=== PATIENT | female | born 1935 | race Caucasian/White ===

== ENCOUNTER 2017-02-22 10:18 | Emergency (ER) | payer MEDICARE, OTHER ==
--- NOTE | 2017-02-22 10:44 | ED Physician Documentation ---
PD HPI FEMALE - Stated complaint Stated Complaint: FEMALE - Chief complaint Chief Complaint: General - History obtained from History obtained from: Patient - History of Present Illness Timing - onset: Today Timing - duration: Days (1) Timing - details: Abrupt onset, Still present Associated symptoms: Dysuria, Urinary frequency. No: Fever, Vaginal discharge, Genital sore/lesion Similar symptoms before: Has not had sx before Recently seen: Not recently seen Review of Systems Constitutional: denies: Fever, Chills GI: denies: Abdominal Pain, Nausea, Vomiting, Diarrhea : reports: Dysuria, Frequency. denies: Discharge Skin: denies: Rash, Lesions PD PAST MEDICAL HISTORY - Past Medical History Cardiovascular: None Respiratory: None Neuro: None Endocrine/Autoimmune: None GI: Ulcers : None HEENT: Other Psych: None Musculoskeletal: Osteoarthritis Derm: None - Past Surgical History General: Colonoscopy Ortho: Hip replacement, Knee replacement HEENT: Cataracts, Tonsil/Adenoidectomy - Present Medications Home Medications: Ambulatory Orders Medication Instructions Recorded Confirmed Colon Care 1 tab PO DAILY 04/25/14 02/22/17 Multivitamin [One Daily 1 tab PO DAILY 04/25/14 02/22/17 Multivitamin] Phenazopyridine [Pyridium] 100 mg PO TID PRN #10 tablet 02/22/17 Sulfamethox/Trimeth 800/160 1 each PO BID #14 tablet 02/22/17 [Bactrim Ds 800/160] - Allergies Allergies/Adverse Reactions: Allergies Allergy/AdvReac Type Severity Reaction Status Date / Time No Known Drug Allergies Allergy Verified 02/22/17 10:27 PD ED PE NORMAL - Vitals Vital signs reviewed: Yes - General General: Alert and oriented X 3, No acute distress, Well developed/nourished - Abdomen Abdomen: Soft, Non tender - Female Female : Deferred - Back Back: No CVA TTP - Derm Derm: Normal color, Warm and dry Results - Vitals Vitals: Oxygen O2 Source Room air - Labs Labs: Microbiology 02/22/17 11:12 Urine Culture - Preliminary Urine,Random Laboratory Tests 02/22/17 11:12 Urine Color YELLOW Urine Clarity CLEAR Urine pH 7.0 Ur Specific [place] 1.010 Urine Protein NEGATIVE Urine Glucose (UA) NEGATIVE Urine Ketones NEGATIVE Urine Occult Blood SMALL H Urine Nitrite NEGATIVE Urine Bilirubin NEGATIVE Urine Urobilinogen 0.2 (NORMAL) Ur Leukocyte Esterase TRACE H Urine RBC 0-5 Urine WBC 11-25 H Ur Epithelial Cells RARE Renal Tubular Ur Squamous Epith Cells FEW Squamous Urine Bacteria Rare Ur Microscopic Review INDICATED Urine Culture Comments INDICATED PD MEDICAL DECISION MAKING - ED course Complexity details: reviewed results (symptoms c/w UTI and UA suggestive enough to go with it. ), considered differential, d/w patient Departure - Departure Disposition: 01 Home, Self Care Clinical Impression: Dysuria UTI (urinary tract infection) Qualifiers: Urinary tract infection type: acute cystitis Hematuria presence: without hematuria Qualified Code(s): N30.00 - Acute cystitis without hematuria Condition: Stable Record reviewed to determine appropriate education?: Yes Instructions: ED UTI Cystitis Female Follow-Up: Sheron Menezes PA-C [Primary Care Provider] - Prescriptions: Phenazopyridine [Pyridium] 100 mg PO TID PRN #10 tablet PRN Reason: Pain Sulfamethox/Trimeth 800/160 [Bactrim Ds 800/160] 1 each PO BID #14 tablet Comments: Your urine test does look like an infection. Your symptoms certainly go along with that. The bladder scan shows appropriate emptying of the bladder. The symptoms and frequency are having go along with the irritation from the infection. Bactrim twice daily for a week for the infection. He can use phenazopyridine 3 times a day to help reduce the irritation of the infection. Use Tylenol or ibuprofen as needed for pains or discomforts. Drink lots of fluids. Recheck if not improved over the next 2-3 days. Discharge Date/Time: 02/22/17 12:04
[2017-02-22 11:22] LABS: BILIRUBIN,URINE NEGATIVE (NEGATIVE)
[2017-02-22 11:26] LABS: UA w/ MICROSCOPIC CHARGE YES
[2017-02-22 11:33] LABS: UR CULTURE IF IND INDICATED
[2017-02-22] MEDS ORDERED: SULFAMETH/TRIMETH DS 800/160 MG TABLET PO STA (11:43)
[2017-02-22] MEDS ORDERED: PHENAZOPYRIDINE 100 MG TABLET PO STA (11:43)
[2017-02-22] MEDS ORDERED: ACETAMINOPHEN 325 MG TABLET PO STA (11:44)
[2017-02-22] MEDS ORDERED: PHENAZOPYRIDINE 100 MG TABLET PO ONE (11:59)
[2017-02-22] MEDS ORDERED: SULFAMETH/TRIMETH DS 800/160 MG TABLET PO ONE (11:59)
[2017-02-22] MEDS ORDERED: ACETAMINOPHEN 325 MG TABLET PO ONE (11:59)
[2017-02-22 12:04] VITALS: BP 122/73
== END 2017-02-22 12:04 | disposition home or self-care (01) ==
LOC: ED 10:18
DX: N30.00 Acute cystitis without hematuria (principal); Z96.659 Presence of unspecified artificial knee joint; Z96.649 Presence of unspecified artificial hip joint
CPT/HCPCS: 51798; 81001; 87077; 87086; 87181; 99283; A9270; 81003

== ENCOUNTER 2017-07-05 12:50 | Emergency (ER) | payer MEDICARE, OTHER ==
[2017-07-05 12:57] VITALS: BP 146/76
--- NOTE | 2017-07-05 13:10 | ED Physician Documentation ---
PD HPI UPPER EXT INJURY - Stated complaint Stated Complaint: R HAND INJ - Chief complaint Chief Complaint: Ext Problem - History obtained from History obtained from: Patient, Family - History of Present Illness Location: Right, Wrist, Hand Type of injury: Fall Where injury occurred: Street Timing - onset: Yesterday Timing - duration: Days (1) Timing - details: Abrupt onset Pain level max: 9 Pain level now: 9 Improved by: Rest, Ice, Immobilization Worsened by: Moving, Palpating Associated symptoms: Swelling. No: Weakness, Numbness, Tingling Contributing factors: No: Anticoagulated Recently seen: Not recently seen - Additonal information Additional information: pt is right handed. Fell and injured R wrist. Review of Systems Constitutional: denies: Fever Respiratory: denies: Cough GI: denies: Nausea, Vomiting, Diarrhea Skin: denies: Rash Musculoskeletal: denies: Neck pain, Back pain Neurologic: denies: Focal weakness, Numbness, Confused, Head injury, LOC PD PAST MEDICAL HISTORY - Past Medical History Cardiovascular: None Respiratory: None Neuro: None Endocrine/Autoimmune: None GI: Ulcers : None HEENT: Other Psych: None Musculoskeletal: Osteoarthritis Derm: None - Past Surgical History Past Surgical History: Yes General: Colonoscopy Ortho: Hip replacement, Knee replacement HEENT: Cataracts, Tonsil/Adenoidectomy - Present Medications Home Medications: Ambulatory Orders Medication Instructions Recorded Confirmed Meloxicam [Mobic] 7.5 mg PO BID PRN #20 tablet 07/05/17 - Allergies Allergies/Adverse Reactions: Allergies Allergy/AdvReac Type Severity Reaction Status Date / Time No Known Drug Allergies Allergy Verified 07/05/17 13:05 - Social History Does the pt smoke?: No Smoking Status: Never smoker Does the pt drink ETOH?: No Does the pt have substance abuse?: No - Immunizations Immunizations are current?: No PD ED PE NORMAL - Vitals Vital signs reviewed: Yes - General General: Alert and oriented X 3, No acute distress - HEENT HEENT: Moist mucous membranes - Neck Neck: Supple, no meningeal sign - Cardiac Cardiac: RRR - Respiratory Respiratory: No respiratory distress, Clear bilaterally - Back Back: No spinal TTP - Derm Derm: Warm and dry - Extremities Extremities: Other (R wrist, diffuse tenderness, swelling, ecchymosis to the R wrist. NVI. No hand or forearm tenderness. no snuffbox tendernes.) - Neuro Neuro: Alert and oriented X 3 - Psych Psych: Normal mood, Normal affect Results - Vitals Vitals: Vital Signs - 24 hr 07/05/17 12:55 Temperature 36.2 C L Heart Rate 74 Respiratory 18 Rate Blood Pressure 146/76 H O2 Saturation 96 Oxygen O2 Source Room air - Rads (name of study) R wrist xray Radiology: Prelim report reviewed, EMP read contemporaneously, See rad report ( No acute bony abnormality) PD MEDICAL DECISION MAKING - ED course Complexity details: reviewed results, re-evaluated patient, considered differential, d/w patient ED course: Patient is an 82-year-old female who presents to the emergency department after a fall onto the right wrist yesterday, no acute fractures on x-ray. No evidence of occult scaphoid fracture. Placed in a Velcro splint for comfort. Will utilize Mobic at home for pain. Counseled regarding missed fractures secondary to acute swelling and may need repeat xrays if not improving. Patient counseled regarding signs and symptoms for which I believe and urgent re -evaluation would be necessary. Patient with good understanding of and agreement to plan and is comfortable going home at this time This document was made in part using voice recognition software. While efforts are made to proofread this document, sound alike and grammatical errors may occur. Departure - Departure Disposition: 01 Home, Self Care Clinical Impression: Right wrist sprain Qualifiers: Encounter type: initial encounter Qualified Code(s): S63.501A - Unspecified sprain of right wrist, initial encounter Condition: Good Instructions: ED Sprain Wrist Follow-Up: Sheron Menezes PA-C [Primary Care Provider] - Within 1 week (for recheck) Prescriptions: Meloxicam [Mobic] 7.5 mg PO BID PRN #20 tablet PRN Reason: Pain Comments: Your x-ray does not show fracture today. Wear the splint for the next week and have a repeat evaluation with your doctor. Return if you worsen. If you are still having pain in 1 week, you may need repeat x-rays as small fractures may be missed initially secondary to swelling. Discharge Date/Time: 07/05/17 14:09
[2017-07-05] MEDS ORDERED: oxyCODONE 5 MG TABLET PO STA (13:11)
--- NOTE | 2017-07-05 13:38 | XRAY Report ---
EXAM: RIGHT WRIST RADIOGRAPHY EXAM DATE: 07/05/2017 01:32 PM. CLINICAL HISTORY: Injury. COMPARISON: None. TECHNIQUE: 3 views. FINDINGS: Bones: Normal. No fractures or bone lesions. Joints: There is mild to moderate degenerative change of the triscaphe joint. Soft Tissues: There is mild ulnar soft tissue swelling. 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 Soft tissue swelling without evidence of acute fracture. [facility] Referring Provider Line: [phone] SITE ID: [id number]
== END 2017-07-05 14:09 | disposition home or self-care (01) ==
LOC: ED 12:50
DX: S63.501A Unspecified sprain of right wrist, initial encounter (principal); W19.XXXA Unspecified fall, initial encounter; Y92.410 Unspecified street and highway as the place of occurrence of the external cause; Z96.649 Presence of unspecified artificial hip joint; Z96.659 Presence of unspecified artificial knee joint
CPT/HCPCS: 99283

== ENCOUNTER 2017-09-17 08:42 | Outpatient (CLI) | payer MEDICARE, OTHER ==
[2017-09-17 12:27] LABS: EOSINOPHILS # (AUTO) 0.1 10^3/uL (0.0-0.7); EOSINOPHILS % (AUTO) 2.1 %; HGB - HEMOGLOBIN 14.6 g/dL (12.0-16.0); LYMPHOCYTES # (AUTO) 0.8 10^3/uL (1.5-3.5); LYMPHOCYTES % (AUTO) 22.3 %; MEAN CORPUSCULAR HEMOGLOBIN 32.1 pg (27.0-31.0); MEAN CORPUSCULAR HGB CONC 33.7 g/dL (32.0-36.0); MEAN CORPUSCULAR VOLUME 95.3 fL (81.0-99.0); MEAN PLATELET VOLUME 7.5 fL (7.9-10.8); MONOCYTES # (AUTO) 0.4 10^3/uL (0.0-1.0); MONOCYTES % (AUTO) 12.2 %; NEUTROPHILS # (AUTO) 2.2 10^3/uL (1.5-6.6); NEUTROPHILS % (AUTO) 62.4 %; PLT - PLATELET COUNT 240 10^3/uL (130-450); RED BLOOD COUNT 4.54 10^6/uL (4.20-5.40); RED CELL DISTRIBUTION WIDTH 14.1 % (12.0-15.0); WHITE BLOOD COUNT 3.6 x10^3/uL (4.8-10.8)
[2017-09-17 13:10] LABS: ALBUMIN/GLOBULIN RATIO 1.3 (1.0-2.2); ALKALINE PHOSPHATASE 82 IU/L (42-121); ALT ALANINE AMINOTRANSFERASE 22 IU/L (10-60); AST ASPARTATE AMINOTRANSFERASE 29 IU/L (10-42); BILIRUBIN,TOTAL 0.5 mg/dL (0.2-1.0); BUN - BLOOD UREA NITROGEN 17 mg/dL (6-20); CALCIUM 9.2 mg/dL (8.5-10.3); CARBON DIOXIDE - CO2 28 mmol/L (21-32); CHLORIDE 104 mmol/L (101-111); CHOL/HDL RATIO 3.1 (<4.4); CHOLESTEROL 239 mg/dL; CREATININE 0.6 mg/dL (0.4-1.0); GFR - MDRD 95 (>89); GLUCOSE 102 mg/dL (70-100); HDL CHOLESTEROL 78 mg/dL; LDL CHOLESTEROL,CALCULATED 145 mg/dL; LDL/HDL RATIO 1.9 (<4.4); SODIUM 138 mmol/L (135-145); TOTAL PROTEIN 7.1 g/dL (6.7-8.2); VLDL CHOLESTEROL 16 mg/dL
[2017-09-17 13:15] LABS: THYROID STIMULATING HORMONE 1.43 uIU/mL (0.34-5.60)
== END 2017-09-17 08:43 | disposition home or self-care (01) ==
LOC: LAB.WCP 08:42
PROVIDERS: ATTEND Physician Assistant Medical
DX: R42 Dizziness and giddiness (principal); I49.1 Atrial premature depolarization; E78.5 Hyperlipidemia, unspecified; R53.83 Other fatigue; D69.9 Hemorrhagic condition, unspecified
CPT/HCPCS: 36415; 80053; 80061; 82306; 82607; 83721; 84443; 85025

== ENCOUNTER 2018-01-27 08:41 | Outpatient (CLI) | payer MEDICARE, OTHER ==
--- NOTE | 2018-01-27 13:09 | CARDIAC PROCEDURE NOTE ---
DATE OF SERVICE: 01/27/2018 Physician: Anna Gonzalez MD INDICATIONS: Dyspnea on exertion; also symptoms of dizziness, fatigue, lightheadedness with exertion. CARDIAC RISK FACTORS 1. Advanced age. 2. Hyperlipidemia. 3. Ex-smoker. After signing informed consent, the patient completed a modified Alejandro protocol treadmill stress test with nuclear imaging. RESTING EKG: Normal sinus rhythm, left atrial enlargement, left anterior fascicular block, early RS transition. The patient exercised for 5 minutes and 10 seconds on a modified Alejandro protocol. The patient achieved a peak heart rate of 119 (87% predicted maximum heart rate for age), 3.5 METS. She had very mid SOB. O2 saturation was 96% at peak, on R.A. Resting heart rate 68, peak heart rate 119. Resting blood pressure 132/80, peak blood pressure 140/60. PEAK EKG: Flattening of T waves in leads I and V2-V3, and horizontal ST segment depressions of 1 mm in leads V5 and V6. IMPRESSION 1. Abnormal resting EKG, consider right heart disease. 2. Fair exercise tolerance. 3. Abnormal EKG changes suggesting ischemia at an adequate level of stress. 4. Her symptoms of dizziness with exertion could also be consistent with cardiomyopathy or valve disease, such as aortic stenosis. She reported having an abnormal Echo, but results are unknown. Nuclear images reported separately. cc: Yohana Orlando PA-C TD: 01/27/2018 12:47 MTDD
--- NOTE | 2018-01-27 16:53 | Nuclear Medicine Report ---
Reason: DYSPNEA ON EXERTION Procedure Date: 01/27/2018 Accession Number: [id number] / [id number] Procedure: NM - Myocardial Perfusion STR/RST CPT Code: FULL RESULT: EXAM: SINGLE-ISOTOPE EXERCISE STRESS TEST. SINGLE-ISOTOPE AND ONE-DAY REST/STRESS MYOCARDIAL PERFUSION SCANS WITH TOMOGRAPHIC IMAGING, QUANTITATIVE ANALYSIS, WALL MOTION ANALYSIS AND CALCULATION OF EJECTION FRACTION. EXAM DATE: 01/27/2018 02:57 PM. CLINICAL HISTORY: Dyspnea on exertion. COMPARISON: None. TECHNIQUE: A rest myocardial perfusion scan was done with tomography after the intravenous administration of 10.3 mCi Tc-99m sestamibi. After an appropriate delay, a treadmill exercise stress was performed according to department protocol. The patient exercised for 5 minutes and 0 seconds. The maximum heart rate was 118 bpm, which was 86% of the maximum predicted heart rate of 137 bpm. At approximately peak heart rate, 43 mCi of Tc-99m sestamibi was injected for stress myocardial perfusion scan. Motion correction was applied when appropriate. Gated tomographic images were obtained for wall motion analysis and computation of left ventricular ejection fraction. FINDINGS: Stress perfusion images demonstrate no fixed or reversible perfusion defects. Mild cardiac chamber enlargement visible on both rest and stress images. Wall motion analysis demonstrates normal wall motion. The left ventricular ejection fraction is calculated to be 78%. IMPRESSION: 1. No scintigraphic findings to indicate myocardial ischemia. Negative for infarct. 2. Normal left ventricular ejection fraction of 78%. 3. Normal segmental and global wall motion. 4. Normal left ventricular cavity size, no change with stress. [facility]
== END 2018-01-27 08:42 | disposition home or self-care (01) ==
LOC: DI 08:41
PROVIDERS: ATTEND Physician Assistant Medical
DX: R06.00 Dyspnea, unspecified (principal); R94.31 Abnormal electrocardiogram [ECG] [EKG]
CPT/HCPCS: 78452; 93017; A9500

== ENCOUNTER 2019-08-11 09:57 | Outpatient (CLI) | payer MEDICARE, OTHER ==
--- NOTE | 2019-08-11 16:24 | XRAY Report ---
Reason: LEFT HAND PAIN Procedure Date: 08/11/2019 Accession Number: [id number] / [id number] Procedure: WCP - Hand 3 View LT CPT Code: Final Report FULL RESULT: EXAM: LEFT HAND RADIOGRAPHY EXAM DATE: 08/11/2019 09:57 AM. CLINICAL HISTORY: LEFT HAND PAIN. Follow onto the left hand 07/23/2019. Continued pain along the fifth digit. COMPARISON: WRIST 4 VIEW RT 07/05/2017 1:11 PM. TECHNIQUE: 3 views. FINDINGS: Bones: Bones appear diffusely demineralized. There is an acute impaction fracture of the dorsal aspect of the base of the proximal phalanx of the left fifth finger. No other acute fracture is identified. There is a markedly attenuated proximal pole of the scaphoid. Joints: Minimal chondrocalcinosis at the lunotriquetral articulation. Moderate dorsal tilt of the lunate relative to the scaphoid and capitate. Moderate joint space narrowing and sclerosis at the lunate capitate articulation. Mild joint space narrowing and osteophyte formation at the third through fifth DIP joints. Soft Tissues: Normal. No soft tissue swelling. IMPRESSION: 1. Mildly impacted fracture of the dorsal base of the proximal phalanx of the left fifth finger. 2. Bones appear diffusely demineralized. 3. 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 4. Mild osteoarthritis at the left third through fifth DIP joints. [facility]
== END 2019-08-11 23:59 | disposition home or self-care (01) ==
LOC: DI.WCP 09:57
PROVIDERS: ATTEND Physician Assistant Medical
DX: S62.617A Displaced fracture of proximal phalanx of left little finger, initial encounter for closed fracture (principal)

== ENCOUNTER 2019-09-13 07:00 | Outpatient (CLI) | payer MEDICARE, OTHER ==
[2019-09-13 12:09] LABS: BASOPHILS % (AUTO) 0.8 %; EOSINOPHILS # (AUTO) 0.1 10^3/uL (0.0-0.7); EOSINOPHILS % (AUTO) 1.1 %; HGB - HEMOGLOBIN 14.2 g/dL (12.0-16.0); LYMPHOCYTES # (AUTO) 0.8 10^3/uL (1.5-3.5); LYMPHOCYTES % (AUTO) 16.1 %; MEAN CORPUSCULAR HEMOGLOBIN 32.3 pg (27.0-31.0); MEAN CORPUSCULAR HGB CONC 32.7 g/dL (32.0-36.0); MEAN CORPUSCULAR VOLUME 98.6 fL (81.0-99.0); MEAN PLATELET VOLUME 8.9 fL (7.9-10.8); MONOCYTES # (AUTO) 0.5 10^3/uL (0.0-1.0); MONOCYTES % (AUTO) 9.5 %; NEUTROPHILS # (AUTO) 3.4 10^3/uL (1.5-6.6); NEUTROPHILS % (AUTO) 72.3 %; PLT - PLATELET COUNT 233 10^3/uL (130-450); RED CELL DISTRIBUTION WIDTH 12.9 % (12.0-15.0); WHITE BLOOD COUNT 4.7 x10^3/uL (4.8-10.8)
[2019-09-13 12:33] LABS: ALBUMIN 4.2 g/dL (3.2-5.5); ALBUMIN/GLOBULIN RATIO 1.3 (1.0-2.2); ALKALINE PHOSPHATASE 89 IU/L (42-121); ALT ALANINE AMINOTRANSFERASE 22 IU/L (10-60); AST ASPARTATE AMINOTRANSFERASE 27 IU/L (10-42); BILIRUBIN,TOTAL 0.8 mg/dL (0.2-1.0); BUN - BLOOD UREA NITROGEN 19 mg/dL (6-20); CALCIUM 9.3 mg/dL (8.5-10.3); CARBON DIOXIDE - CO2 27 mmol/L (21-32); CHLORIDE 105 mmol/L (101-111); CHOL/HDL RATIO 2.7 (<4.4); CHOLESTEROL 216 mg/dL; CREATININE 0.6 mg/dL (0.4-1.0); GLUCOSE 99 mg/dL (70-100); HDL CHOLESTEROL 79 mg/dL; LDL CHOLESTEROL,CALCULATED 124 mg/dL; LDL/HDL RATIO 1.6 (<4.4); SODIUM 141 mmol/L (135-145); TOTAL PROTEIN 7.4 g/dL (6.7-8.2); VLDL CHOLESTEROL 13 mg/dL
== END 2019-09-13 23:59 | disposition home or self-care (01) ==
LOC: LAB.WCP 07:00
PROVIDERS: ATTEND Physician Assistant Medical
DX: E78.5 Hyperlipidemia, unspecified (principal); D69.9 Hemorrhagic condition, unspecified; R53.1 Weakness; M15.8 Other polyosteoarthritis
CPT/HCPCS: 36415; 80053; 80061; 83721; 84443; 85025

== ENCOUNTER 2020-06-14 10:03 | Emergency (ER) | payer MEDICARE, OTHER ==
--- NOTE | 2020-06-14 11:46 | ED Physician Documentation ---
History of Present Illness - Stated complaint Stated Complaint: BACK PX - Chief complaint Chief Complaint: Trauma Hd/Nk - History obtained from History obtained from: Patient - History of Present Illness Timing: How many days ago (2) Pain level max: 8 Pain level now: 6 - Additonal information Additional information: Patient is an 85-year-old female who presents to the emergency department after a fall down the stairs days ago. She states that they were carpeted stairs. She states she still has pain to the left shoulder, left hip and bilateral buttocks. No midline pain. No cervical, thoracic or lumbar pain. No headache. No head injury. No loss of consciousness. No seizures. No altered mental status. Not on anticoagulants. Worse with movement and better with rest Review of Systems Ten Systems: 10 systems reviewed and negative Constitutional: denies: Fever, Chills Nose: denies: Rhinorrhea / runny nose, Congestion Respiratory: denies: Cough GI: denies: Vomiting, Diarrhea Skin: denies: Rash Musculoskeletal: denies: Neck pain, Back pain Neurologic: denies: Headache PD PAST MEDICAL HISTORY - Past Medical History Cardiovascular: None Respiratory: None Endocrine/Autoimmune: None GI: Ulcers : None HEENT: Other Psych: None Musculoskeletal: Osteoarthritis Derm: None - Past Surgical History Past Surgical History: Yes General: Colonoscopy Ortho: Hip replacement, Knee replacement HEENT: Cataracts, Tonsil/Adenoidectomy - Present Medications Home Medications: Ambulatory Orders Medication Instructions Recorded Confirmed Oxycodone HCl/Acetaminophen 1 each PO Q6H PRN #10 tablet 06/14/20 [Percocet 5-325 mg Tablet] - Allergies Allergies/Adverse Reactions: Allergies Allergy/AdvReac Type Severity Reaction Status Date / Time No Known Drug Allergies Allergy Verified 06/14/20 10:19 - Social History Does the pt smoke?: No Smoking Status: Never smoker Does the pt drink ETOH?: No Does the pt have substance abuse?: No - Immunizations Immunizations are current?: No PD ED PE NORMAL - Vitals Vital signs reviewed: Yes - General General: Alert and oriented X 3, No acute distress, Well developed/nourished - HEENT HEENT: Atraumatic, PERRL, EOMI, Ears normal, Moist mucous membranes - Neck Neck: Supple, no meningeal sign, No bony TTP - Cardiac Cardiac: RRR, Strong equal pulses - Respiratory Respiratory: No respiratory distress, Clear bilaterally - Abdomen Abdomen: Soft, Non tender, Non distended - Back Back: No spinal TTP (no step off or deformity.) - Derm Derm: Warm and dry - Extremities Extremities: Other - Neuro Neuro: Alert and oriented X 3 - Psych Psych: Normal mood, Normal affect - Free text exam Free text exam: Mild tenderness to palpation over the left shoulder and left humerus. No deformity. No bruising. No swelling. Also tender palpation over the left hip and femur. She does have a prosthetic hip on that side. Neurovascularly intact. No deformity. She has been walking for the past 2 days. Also has some pain on the right hip, though much less than the left. Results - Vitals Vitals: Vital Signs - 24 hr 06/14/20 06/14/20 06/14/20 10:14 12:29 13:28 Temperature 36.0 C L 36.8 C Heart Rate 79 80 83 Respiratory 20 20 18 Rate Blood Pressure 145/82 H 147/81 H 136/72 H O2 Saturation 97 95 96 Oxygen O2 Source Room air - Rads (name of study) L humerus xray Radiology: Prelim report reviewed, EMP read contemporaneously, See rad report (No acute abnormality) L shoulder xray Radiology: Prelim report reviewed, EMP read contemporaneously, See rad report (No acute abnormality) L femur xray Radiology: Prelim report reviewed, EMP read contemporaneously, See rad report (No acute abnormality) pelvis xray Radiology: Prelim report reviewed, EMP read contemporaneously, See rad report (No acute abnormality) PD MEDICAL DECISION MAKING - ED course Complexity details: reviewed results, re-evaluated patient, considered differential, d/w patient ED course: No acute findings on x-ray. Patient is well-appearing, nontoxic. Afebrile. No hypoxia. No evidence of intracranial hemorrhage or skull fracture. No evidence of spinal fracture. Ambulating without difficulty. Pain well controlled. Patient counseled regarding signs and symptoms for which I believe and urgent re-evaluation would be necessary. Patient with good understanding of and agreement to plan and is comfortable going home at this time This document was made in part using voice recognition software. While efforts are made to proofread this document, sound alike and grammatical errors may occur. Departure - Departure Disposition: 01 Home, Self Care Clinical Impression: Contusion of soft tissue Fall Qualifiers: Encounter type: initial encounter Qualified Code(s): W19.XXXA - Unspecified fall, initial encounter Condition: Good Instructions: ED Contusion Soft Tissue, ED Mechanical Fall Follow-Up: Yohana Orlando PA-C [Primary Care Provider] - Within 1 week Prescriptions: Oxycodone HCl/Acetaminophen [Percocet 5-325 mg Tablet] 1 each PO Q6H PRN #10 tablet PRN Reason: pain Comments: Return if you worsen. Your x-rays did not show any acute abnormalities today. Follow-up with your doctor for further care. Do not drink alcohol or drive while on narcotic pain medicine. Note that many narcotic pain relievers also contain tylenol/acetaminophen. Please ensure that your total dose of acetaminophen from all sources does not exceed 3 grams (3000mg) per day. You may constipated on this medication, take a stool softener such as "Colace" twice a day while you are on it. Also recommend a [id number] laxative such as senna or MiraLAX any day that you do not have a bowel movement. If you received narcotic pain medication in the emergency department, do not drive or operate machinery for the next 24 hours. Discharge Date/Time: 06/14/20 13:45
[2020-06-14] MEDS ORDERED: oxyCODONE 5 MG TABLET PO STA (11:56)
--- NOTE | 2020-06-14 13:02 | XRAY Report ---
PROCEDURE: Femur 2V LT INDICATIONS: fall, femur pain TECHNIQUE: 4 views of the femur were acquired. COMPARISON: None. FINDINGS: No fracture. Hip arthroplasty in expected alignment. Hardware appears intact. Arthroplasty also noted and expected postoperative alignment. Soft tissues: No suspicious soft tissu e calcifications or masses. IMPRESSION: No fracture. Reviewed by: Jose Mejia MD on 06/14/2020 1:00 PM PST Approved by: Jose Mejia MD on 06/14/2020 1:00 PM PST Station ID: [id number]
--- NOTE | 2020-06-14 13:03 | XRAY Report ---
PROCEDURE: Humerus LT INDICATIONS: fall, arm pain TECHNIQUE: 2 views of the humerus were acquired. COMPARISON: Shoulder radiographs dated same day. FINDINGS: No fracture identified. [id number]-ed-[id number] AC joint degeneration. Glenohumeral spurring and sclerosis i s also seen. There is anatomic alignment. Soft tissues: No suspicious soft tissue calcifications. IMPRESSION: No fracture. Reviewed by: Jose Mejia MD on 06/14/2020 1:02 PM [facility] Approved by: Jose Mejia MD on 06/14/2020 1:02 PM PST Station ID: [id number]
--- NOTE | 2020-06-14 13:04 | XRAY Report ---
PROCEDURE: Shoulder 3 View LT INDICATIONS: fall, shoulder pain TECHNIQUE: 3 views of the shoulder were acquired. COMPARISON: None. FINDINGS: No fracture. Mild to moderate shoulder joint degeneration. Scattered subchondral sclerosis and spurri ng. There is anatomic alignment Soft tissues: No suspicious soft tissue calcifications. IMPRESSION: Chronic degenerative changes. No fracture Reviewed by: Jose Mejia MD on 06/14/2020 1:03 PM PST Approved by: Jose Mejia MD on 06/14/2020 1:03 PM [facility] Station ID: [id number]
[2020-06-14 13:29] VITALS: BP 136/72
--- NOTE | 2020-06-18 05:53 | XRAY Report ---
PROCEDURE: Pelvis 1 View INDICATIONS: FALL, HIP PAIN TECHNIQUE: 1 view(s) of the pelvis acquired. COMPARISON: None. FINDINGS: No fracture. Bilateral hip arthroplasty in expected alignment. Lumbar spondylosis and facet arthropat hy. Degenerative changes of sacroiliac joints and pubis symphysis. Soft tissues: Visualized bowel ga s pattern is normal. No suspicious soft tissue calcifications. IMPRESSION: No fracture. Expected postoperative alignment of bilateral hip arthroplasties Reviewed by: Jose Mejia MD on 06/14/2020 1:08 PM PST Approved by: Jose Mejia MD on 06/14/2020 1:08 PM PST Station ID: [id number]
== END 2020-06-14 13:45 | disposition home or self-care (01) ==
LOC: ED 10:03
DX: M25.512 Pain in left shoulder (principal); M25.552 Pain in left hip; W10.9XXA Fall (on) (from) unspecified stairs and steps, initial encounter
CPT/HCPCS: 72170; 73030; 73060; 73552; 99284; A9270

== ENCOUNTER 2020-12-24 09:25 | Outpatient (CLI) | payer MEDICARE, OTHER ==
[2020-12-24 11:57] LABS: BASOPHILS % (AUTO) 0.9 %; EOSINOPHILS # (AUTO) 0.1 10^3/uL (0.0-0.7); EOSINOPHILS % (AUTO) 1.5 %; HCT - HEMATOCRIT 41.4 % (37.0-47.0); HGB - HEMOGLOBIN 13.8 g/dL (12.0-16.0); LYMPHOCYTES % (AUTO) 20.4 %; MEAN CORPUSCULAR HEMOGLOBIN 32.2 pg (27.0-31.0); MEAN CORPUSCULAR HGB CONC 33.3 g/dL (32.0-36.0); MEAN CORPUSCULAR VOLUME 96.7 fL (81.0-99.0); MEAN PLATELET VOLUME 9.1 fL (7.9-10.8); MONOCYTES # (AUTO) 0.6 10^3/uL (0.0-1.0); MONOCYTES % (AUTO) 12.9 %; NEUTROPHILS % (AUTO) 64.1 %; PLT - PLATELET COUNT 257 10^3/uL (130-450); RED BLOOD COUNT 4.28 10^6/uL (4.20-5.40); RED CELL DISTRIBUTION WIDTH 13.7 % (12.0-15.0); WHITE BLOOD COUNT 4.7 x10^3/uL (4.8-10.8)
[2020-12-24 12:16] LABS: ALBUMIN 4.2 g/dL (3.2-5.5); ALBUMIN/GLOBULIN RATIO 1.6 (1.0-2.2); ALKALINE PHOSPHATASE 108 IU/L (42-121); ALT ALANINE AMINOTRANSFERASE 22 IU/L (10-60); AST ASPARTATE AMINOTRANSFERASE 27 IU/L (10-42); BILIRUBIN,TOTAL 0.7 mg/dL (0.2-1.0); BUN - BLOOD UREA NITROGEN 24 mg/dL (6-20); CALCIUM 9.5 mg/dL (8.5-10.3); CARBON DIOXIDE - CO2 28 mmol/L (21-32); CHLORIDE 104 mmol/L (101-111); CHOLESTEROL 240 mg/dL; CREATININE 0.6 mg/dL (0.4-1.0); GFR - MDRD 95 (>89); GLUCOSE 104 mg/dL (70-100); HDL CHOLESTEROL 80 mg/dL; LDL CHOLESTEROL,CALCULATED 147 mg/dL; LDL/HDL RATIO 1.8 (<4.4); POTASSIUM 4.4 mmol/L (3.5-5.0); SODIUM 142 mmol/L (135-145); TOTAL PROTEIN 6.8 g/dL (6.7-8.2); TRIGLYCERIDES 65 mg/dL; VLDL CHOLESTEROL 13 mg/dL
== END 2020-12-24 23:59 | disposition home or self-care (01) ==
LOC: LAB.WCP 09:25
PROVIDERS: ATTEND Physician Assistant Medical
DX: R53.83 Other fatigue (principal); E78.5 Hyperlipidemia, unspecified; R63.4 Abnormal weight loss
CPT/HCPCS: 36415; 80053; 80061; 83721; 85025

== ENCOUNTER 2021-01-22 08:00 | Outpatient (CLI) | payer MEDICARE, OTHER ==
--- NOTE | 2021-01-22 14:35 | XRAY Report ---
PROCEDURE: Ribs w/PA Chest LT INDICATIONS: Left anterior thoracic chest wall pain TECHNIQUE: 3 views of the left ribs were acquired, along with a single view chest. COMPARISON: None. FINDINGS: Surgical changes and devices: None. Bones and chest wall: No fractures or dislocations. No suspicious bony lesions. Overlying soft tis sues appear unremarkable. Lungs and pleura: No pleural effusions or pneumothorax. Lungs appear clear. Mediastinum: Mediastinal contours appear normal. Heart size is normal. IMPRESSION: No fracture or suspicious bone lesion identified at the patient's area of pain. Reviewed by: Luciano Casas MD on 01/22/2021 2:34 PM PDT Approved by: Luciano Casas MD on 01/22/2021 2:34 PM PDT Station ID: [id number]
== END 2021-01-22 23:59 | disposition home or self-care (01) ==
LOC: DI.N 08:00
PROVIDERS: ATTEND Physician Assistant Medical
DX: S20.212A Contusion of left front wall of thorax, initial encounter (principal)

== ENCOUNTER 2021-05-22 07:12 | Outpatient (CLI) | payer MEDICARE, OTHER ==
[2021-05-22 12:05] LABS: BASOPHILS # (AUTO) 0.1 10^3/uL (0.0-0.1); BASOPHILS % (AUTO) 1.1 %; EOSINOPHILS # (AUTO) 0.1 10^3/uL (0.0-0.7); EOSINOPHILS % (AUTO) 1.8 %; HCT - HEMATOCRIT 41.9 % (37.0-47.0); HGB - HEMOGLOBIN 13.8 g/dL (12.0-16.0); LYMPHOCYTES # (AUTO) 1.1 10^3/uL (1.5-3.5); LYMPHOCYTES % (AUTO) 23.3 %; MEAN CORPUSCULAR HEMOGLOBIN 32.2 pg (27.0-31.0); MEAN CORPUSCULAR HGB CONC 32.9 g/dL (32.0-36.0); MEAN CORPUSCULAR VOLUME 97.7 fL (81.0-99.0); MEAN PLATELET VOLUME 9.5 fL (7.9-10.8); MONOCYTES # (AUTO) 0.7 10^3/uL (0.0-1.0); MONOCYTES % (AUTO) 15.1 %; NEUTROPHILS # (AUTO) 2.6 10^3/uL (1.5-6.6); NEUTROPHILS % (AUTO) 58.5 %; PLT - PLATELET COUNT 252 10^3/uL (130-450); RED BLOOD COUNT 4.29 10^6/uL (4.20-5.40); RED CELL DISTRIBUTION WIDTH 12.6 % (12.0-15.0); WHITE BLOOD COUNT 4.5 x10^3/uL (4.8-10.8)
[2021-05-22 12:52] LABS: ALBUMIN 4.2 g/dL (3.2-5.5); ALBUMIN/GLOBULIN RATIO 1.4 (1.0-2.2); ALKALINE PHOSPHATASE 96 IU/L (42-121); ALT ALANINE AMINOTRANSFERASE 21 IU/L (10-60); AST ASPARTATE AMINOTRANSFERASE 26 IU/L (10-42); BILIRUBIN,TOTAL 0.7 mg/dL (0.2-1.0); BUN - BLOOD UREA NITROGEN 25 mg/dL (6-20); CALCIUM 9.4 mg/dL (8.5-10.3); CARBON DIOXIDE - CO2 29 mmol/L (21-32); CHLORIDE 103 mmol/L (101-111); CHOL/HDL RATIO 2.6 (<4.4); CHOLESTEROL 204 mg/dL; CREATININE 0.6 mg/dL (0.4-1.0); GFR - MDRD 95 (>89); GLUCOSE 112 mg/dL (70-100); HDL CHOLESTEROL 80 mg/dL; LDL CHOLESTEROL,CALCULATED 112 mg/dL; LDL/HDL RATIO 1.4 (<4.4); SODIUM 139 mmol/L (135-145); TOTAL PROTEIN 7.2 g/dL (6.7-8.2); TRIGLYCERIDES 58 mg/dL; VLDL CHOLESTEROL 12 mg/dL
== END 2021-05-22 07:13 | disposition home or self-care (01) ==
LOC: LAB.N 07:12
PROVIDERS: ATTEND Nurse Practitioner Family
DX: E78.5 Hyperlipidemia, unspecified (principal); R53.83 Other fatigue
CPT/HCPCS: 36415; 80053; 80061; 83721; 85025

== ENCOUNTER 2021-07-04 12:56 | Outpatient (CLI) | payer MEDICARE, OTHER ==
--- NOTE | 2021-07-04 13:35 | XRAY Report ---
PROCEDURE: Ankle 3 View RT INDICATIONS: ANKLE PAIN, RIGHT TECHNIQUE: 3 views of the ankle were acquired. COMPARISON: None. FINDINGS: Bones: No fractures or dislocations. There is a small corticated ossicle superior to navicula. Ankl e mortise is normally aligned. No suspicious bony lesions. Soft tissues: Small tibiotalar joint effusion. Mild soft tissue swelling over the lateral malleolus. Achilles tendon appears normal. IMPRESSION: 1. No acute osseous abnormalities. 2. Mild soft tissue swelling and small tibiotalar joint effusion. If clinical symptoms persist or cli nical suspicion for internal derangement is high. MRI would be helpful. Reviewed by: Shravan Johansen MD on 07/04/2021 1:34 PM PDT Approved by: Shravan Johansen MD on 07/04/2021 1:34 PM PDT Station ID: [id number]
== END 2021-07-04 12:57 | disposition home or self-care (01) ==
LOC: DI.N 12:56
PROVIDERS: ATTEND Physician Assistant Medical
DX: M25.571 Pain in right ankle and joints of right foot (principal); M25.471 Effusion, right ankle

== ENCOUNTER 2021-11-13 07:32 | Outpatient (CLI) | payer MEDICARE, OTHER ==
[2021-11-13 13:09] LABS: ALBUMIN 4.2 g/dL (3.2-5.5); ALBUMIN/GLOBULIN RATIO 1.4 (1.0-2.2); ALKALINE PHOSPHATASE 74 IU/L (42-121); ALT ALANINE AMINOTRANSFERASE 20 IU/L (10-60); AST ASPARTATE AMINOTRANSFERASE 26 IU/L (10-42); BILIRUBIN,TOTAL 0.7 mg/dL (0.2-1.0); BUN - BLOOD UREA NITROGEN 27 mg/dL (6-20); CALCIUM 9.4 mg/dL (8.5-10.3); CARBON DIOXIDE - CO2 30 mmol/L (21-32); CHLORIDE 102 mmol/L (101-111); CHOL/HDL RATIO 2.9 (<4.4); CHOLESTEROL 207 mg/dL; CREATININE 0.7 mg/dL (0.4-1.0); GFR - MDRD 79 (>89); GLUCOSE 103 mg/dL (70-100); HDL CHOLESTEROL 72 mg/dL; LDL CHOLESTEROL,CALCULATED 121 mg/dL; LDL/HDL RATIO 1.7 (<4.4); POTASSIUM 4.2 mmol/L (3.5-5.0); SODIUM 138 mmol/L (135-145); TOTAL PROTEIN 7.1 g/dL (6.7-8.2); TRIGLYCERIDES 70 mg/dL; VLDL CHOLESTEROL 14 mg/dL
== END 2021-11-13 07:33 | disposition home or self-care (01) ==
LOC: LAB.N 07:32
PROVIDERS: ATTEND Physician Assistant Medical
DX: E78.5 Hyperlipidemia, unspecified (principal)
CPT/HCPCS: 36415; 80053; 80061; 83721

== ENCOUNTER 2022-01-09 08:00 | Outpatient (CLI) | payer MEDICARE, OTHER ==
--- NOTE | 2022-01-09 11:48 | XRAY Report ---
PROCEDURE: Ribs w/PA Chest LT INDICATIONS: LEFT RIB PAIN TECHNIQUE: 3 views of the left ribs were acquired, along with a single view chest. COMPARISON: None FINDINGS: Surgical changes and devices: None. Bones and chest wall: There is a minimally displaced lateral left eighth rib fracture.. No suspiciou s bony lesions. Overlying soft tissues appear unremarkable. Lungs and pleura: No pleural effusions or pneumothorax. Lungs appear clear. Mediastinum: Mediastinal contours appear normal. Heart size is normal. IMPRESSION: Minimally displaced lateral left eighth rib fracture. Reviewed by: Yisel Cope MD on 01/09/2022 11:46 AM PDT Approved by: Yisel Cope MD on 01/09/2022 11:46 AM PDT Station ID: [id number]
== END 2022-01-09 23:59 | disposition home or self-care (01) ==
LOC: DI.N 08:00
PROVIDERS: ATTEND Registered Nurse
DX: S22.32XA Fracture of one rib, left side, initial encounter for closed fracture (principal)

== ENCOUNTER 2022-06-16 08:11 | Outpatient (CLI) | payer MEDICARE, OTHER ==
[2022-06-16 13:01] LABS: CALCIUM 9.4 mg/dL (8.5-10.3); CREATININE 0.6 mg/dL (0.4-1.0); POTASSIUM 4.2 mmol/L (3.5-5.0)
== END 2022-06-16 08:12 | disposition home or self-care (01) ==
LOC: LAB.N 08:11
PROVIDERS: ATTEND Physician Assistant Medical
DX: R73.9 Hyperglycemia, unspecified (principal)
CPT/HCPCS: 36415; 80048

== ENCOUNTER 2022-11-24 07:13 | Outpatient (CLI) | payer MEDICARE, OTHER ==
[2022-11-24 12:33] LABS: BASOPHILS # (AUTO) 0.1 10^3/uL (0.0-0.1); BASOPHILS % (AUTO) 1.3 %; EOSINOPHILS # (AUTO) 0.1 10^3/uL (0.0-0.7); EOSINOPHILS % (AUTO) 1.8 %; HCT - HEMATOCRIT 41.2 % (37.0-47.0); HGB - HEMOGLOBIN 13.3 g/dL (12.0-16.0); LYMPHOCYTES # (AUTO) 0.7 10^3/uL (1.5-3.5); MEAN CORPUSCULAR HEMOGLOBIN 31.8 pg (27.0-31.0); MEAN CORPUSCULAR HGB CONC 32.3 g/dL (32.0-36.0); MEAN CORPUSCULAR VOLUME 98.6 fL (81.0-99.0); MONOCYTES # (AUTO) 0.5 10^3/uL (0.0-1.0); MONOCYTES % (AUTO) 12.1 %; NEUTROPHILS # (AUTO) 2.5 10^3/uL (1.5-6.6); NEUTROPHILS % (AUTO) 65.8 %; PLT - PLATELET COUNT 237 10^3/uL (130-450); RED BLOOD COUNT 4.18 10^6/uL (4.20-5.40); RED CELL DISTRIBUTION WIDTH 12.8 % (12.0-15.0); WHITE BLOOD COUNT 3.8 x10^3/uL (4.8-10.8)
[2022-11-24 12:55] LABS: ALBUMIN 4.2 g/dL (3.2-5.5); ALBUMIN/GLOBULIN RATIO 1.6 (1.0-2.2); ALKALINE PHOSPHATASE 107 IU/L (42-121); ALT ALANINE AMINOTRANSFERASE 15 IU/L (10-60); AST ASPARTATE AMINOTRANSFERASE 23 IU/L (10-42); BILIRUBIN,TOTAL 0.6 mg/dL (0.2-1.0); BUN - BLOOD UREA NITROGEN 15 mg/dL (6-20); CALCIUM 9.5 mg/dL (8.5-10.3); CARBON DIOXIDE - CO2 30 mmol/L (21-32); CHLORIDE 105 mmol/L (101-111); CHOL/HDL RATIO 2.8 (<4.4); CHOLESTEROL 190 mg/dL; CREATININE 0.6 mg/dL (0.6-1.3); GFR - MDRD 94 (>89); GLUCOSE 101 mg/dL (74-104); HDL CHOLESTEROL 69 mg/dL; LDL CHOLESTEROL,CALCULATED 105 mg/dL; LDL/HDL RATIO 1.5 (<4.4); POTASSIUM 4.4 mmol/L (3.5-4.5); SODIUM 141 mmol/L (135-145); TOTAL PROTEIN 6.8 g/dL (6.4-8.9); TRIGLYCERIDES 78 mg/dL (48-352); VLDL CHOLESTEROL 16 mg/dL
== END 2022-11-24 07:14 | disposition home or self-care (01) ==
LOC: LAB.N 07:13
PROVIDERS: ATTEND Physician Assistant Medical
DX: E78.5 Hyperlipidemia, unspecified (principal); R73.9 Hyperglycemia, unspecified; M15.9 Polyosteoarthritis, unspecified
CPT/HCPCS: 36415; 80053; 80061; 83721; 85025

== ENCOUNTER 2022-11-26 13:49 | Outpatient (CLI) | payer MEDICARE, OTHER ==
--- NOTE | 2022-11-26 18:16 | XRAY Report ---
PROCEDURE: Hand 3 View LT INDICATIONS: HAND PAIN LEFT TECHNIQUE: 3 views of the hand(s) acquired. COMPARISON: Left hand radiographs 08/11/2019 FINDINGS: Bones: The bones appear demineralized. No definite acute fracture or dislocation identified. Pronoun jennifer polyarticular degenerative changes of the hand and wrist present. Periarticular lucencies also de monstrated indeterminate for subchondral cystic change or erosions. Soft tissues: TFCC chondrocalcinosis present. IMPRESSION: No acute bony abnormality identified. If pain persists with conservative management, consider repeat radiographs in 10-14 days or cross-sectional imaging. Polyarticular degenerative changes of the hand and wrist. Periarticular lucencies also demonstrated i ndeterminate for subchondral cystic change or erosions, inflammatory arthropathies are not excludable . TFCC chondrocalcinosis, a nonspecific finding that can be seen in setting of CPPD, osteoarthritis, or other etiologies. Reviewed by: Esa Schulte MD on 11/26/2022 6:14 PM PDT Approved by: Esa Schulte MD on 11/26/2022 6:14 PM PDT Station ID: [id number]
== END 2022-11-26 13:50 | disposition home or self-care (01) ==
LOC: DI 13:49
PROVIDERS: ATTEND Physician Assistant Medical
DX: M19.042 Primary osteoarthritis, left hand (principal); M19.032 Primary osteoarthritis, left wrist; M11.232 Other chondrocalcinosis, left wrist

== ENCOUNTER 2023-05-28 08:47 | Outpatient (CLI) | payer MEDICARE, OTHER ==
[2023-05-28 12:27] LABS: ALBUMIN 4.2 g/dL (3.2-5.5); ALBUMIN/GLOBULIN RATIO 1.8 (1.0-2.2); ALKALINE PHOSPHATASE 77 IU/L (42-121); ALT ALANINE AMINOTRANSFERASE 14 IU/L (10-60); AST ASPARTATE AMINOTRANSFERASE 22 IU/L (10-42); BILIRUBIN,TOTAL 0.6 mg/dL (0.2-1.0); BUN - BLOOD UREA NITROGEN 19 mg/dL (6-20); CALCIUM 9.3 mg/dL (8.5-10.3); CARBON DIOXIDE - CO2 31 mmol/L (21-32); CHLORIDE 106 mmol/L (101-111); CHOL/HDL RATIO 2.6 (<4.4); CHOLESTEROL 199 mg/dL; CREATININE 0.7 mg/dL (0.6-1.3); GFR - MDRD 79 (>89); GLUCOSE 101 mg/dL (74-104); HDL CHOLESTEROL 78 mg/dL; LDL CHOLESTEROL,CALCULATED 110 mg/dL; LDL/HDL RATIO 1.4 (<4.4); POTASSIUM 4.1 mmol/L (3.5-4.5); SODIUM 141 mmol/L (135-145); TOTAL PROTEIN 6.6 g/dL (6.4-8.9); TRIGLYCERIDES 55 mg/dL (48-352); VLDL CHOLESTEROL 11 mg/dL
[2023-05-28 12:45] LABS: ESTIMATED AVERAGE GLUCOSE 120 mg/dL (70-100); HEMOGLOBIN A1c% 5.8 % (4.27-6.07)
== END 2023-05-28 08:48 | disposition home or self-care (01) ==
LOC: LAB.N 08:47
PROVIDERS: ATTEND Physician Assistant Medical
DX: E78.5 Hyperlipidemia, unspecified (principal); R73.9 Hyperglycemia, unspecified
CPT/HCPCS: 36415; 80053; 80061; 83036; 83721

== ENCOUNTER 2023-11-16 07:23 | Outpatient (CLI) | payer MEDICARE, OTHER ==
[2023-11-16 12:53] LABS: BASOPHILS % (AUTO) 0.8 %; EOSINOPHILS # (AUTO) 0.1 10^3/uL (0.0-0.7); EOSINOPHILS % (AUTO) 1.8 %; HCT - HEMATOCRIT 40.6 % (37.0-47.0); HGB - HEMOGLOBIN 13.1 g/dL (12.0-16.0); LYMPHOCYTES # (AUTO) 0.7 10^3/uL (1.5-3.5); LYMPHOCYTES % (AUTO) 13.7 %; MEAN CORPUSCULAR HGB CONC 32.3 g/dL (32.0-36.0); MEAN CORPUSCULAR VOLUME 99.3 fL (81.0-99.0); MEAN PLATELET VOLUME 9.2 fL (7.9-10.8); MONOCYTES # (AUTO) 0.7 10^3/uL (0.0-1.0); MONOCYTES % (AUTO) 13.5 %; NEUTROPHILS # (AUTO) 3.6 10^3/uL (1.5-6.6); NEUTROPHILS % (AUTO) 69.8 %; PLT - PLATELET COUNT 254 10^3/uL (130-450); RED BLOOD COUNT 4.09 10^6/uL (4.20-5.40); RED CELL DISTRIBUTION WIDTH 12.9 % (12.0-15.0); WHITE BLOOD COUNT 5.1 x10^3/uL (4.8-10.8)
[2023-11-16 13:46] LABS: ALBUMIN 4.1 g/dL (3.2-5.5); ALBUMIN/GLOBULIN RATIO 1.6 (1.0-2.2); ALKALINE PHOSPHATASE 111 IU/L (42-121); ALT ALANINE AMINOTRANSFERASE 13 IU/L (10-60); AST ASPARTATE AMINOTRANSFERASE 21 IU/L (10-42); BILIRUBIN,TOTAL 0.7 mg/dL (0.2-1.0); BUN - BLOOD UREA NITROGEN 21 mg/dL (6-20); CALCIUM 9.6 mg/dL (8.5-10.3); CARBON DIOXIDE - CO2 30 mmol/L (21-32); CHLORIDE 104 mmol/L (101-111); CHOL/HDL RATIO 2.5 (<4.4); CHOLESTEROL 191 mg/dL; CREATININE 0.7 mg/dL (0.6-1.3); GFR - MDRD 79 (>89); GLUCOSE 103 mg/dL (74-104); HDL CHOLESTEROL 75 mg/dL; LDL CHOLESTEROL,CALCULATED 102 mg/dL; LDL/HDL RATIO 1.4 (<4.4); POTASSIUM 4.1 mmol/L (3.5-4.5); SODIUM 139 mmol/L (135-145); TOTAL PROTEIN 6.6 g/dL (6.4-8.9); TRIGLYCERIDES 68 mg/dL; VLDL CHOLESTEROL 14 mg/dL
== END 2023-11-16 07:24 | disposition home or self-care (01) ==
LOC: LAB.N 07:23
PROVIDERS: ATTEND Physician Assistant Medical
DX: E78.5 Hyperlipidemia, unspecified (principal); M19.049 Primary osteoarthritis, unspecified hand
CPT/HCPCS: 36415; 80053; 80061; 83721; 85025

== ENCOUNTER 2023-11-19 11:17 | Outpatient (CLI) | payer MEDICARE, OTHER ==
--- NOTE | 2023-11-20 10:52 | Mammography Report ---
BILATERAL DIGITAL SCREENING MAMMOGRAM: 11/19/2023 CLINICAL: Routine screening. Comparison is made to exams dated: 07/17/2021 mammogram, 07/24/2011 mammogram, and 07/12/2010 mammogram - [facility]. There are scattered areas of fibroglandular density in both breasts (category b / 25%-50% glandular t issue). There are benign vascular calcifications in both breasts. No significant masses, calcifications, or other findings are seen in either breast. There has been no significant interval change. IMPRESSION: BENIGN There is no mammographic evidence of malignancy. A 1 year screening mammogram is recommended. This exam was interpreted at Station ID: [id number]. NOTE: For mammograms, a report in lay terms will be sent to the patient. Approximately 15% of breast malignancies will not be visualized mammographically. In the management of a palpable breast mass, a negative mammogram must not discourage biopsy of a clinically suspicious lesion. Electronically Signed By: Aneesh johnson/adrián:11/19/2023 18:33:49 letter sent: No_Letter ACR BI-RADS Category 2: Benign Finding(s) 3342F PARENCHYMAL PATTERN: (A) - The breast(s) demonstrate(s) scattered fibroglandular densities. BI-RADS CATEGORY: (2) - 2 RECOMMENDATION: (ANNUAL) - Recommend routine annual screening mammography. [id number] 1 year screening LATERALITY: (B)
== END 2023-11-19 11:18 | disposition home or self-care (01) ==
LOC: DI.N 11:17
DX: Z12.31 Encounter for screening mammogram for malignant neoplasm of breast (principal); R92.323 Mammographic fibroglandular density, bilateral breasts

== ENCOUNTER 2024-02-06 13:07 | Inpatient (IN) ==
--- NOTE | 2024-02-06 14:01 | ED Physician Documentation ---
History of Present Illness Stated complaint Stated Complaint: SOA,COUGH BLOOD Chief complaint Chief Complaint: Resp Additonal information Additional information: 88-year-old female presents with 5d of shortness of breath, cough with blood. History clarified from triage notes. Patient here with family. After a 2-week trip to [place] at the end of December, she had persistent cough and intermittent shortness of breath, that never improved and were ultimately treated with amoxicillin and azithromycin courses that she is about to complete. A few months ago, she did also have a doxycycline course that worked well for a similar presentation, but she has not had doxycycline recently. She has chest wall pain specifically with coughing, nonexertional, with intermittent shortness of breath. Today while in clinic, she coughed up a few small bloody clots; she denies any other prior hemoptysis. No hematemesis or red or black in stool. No fevers, chills, nausea or vomiting or diarrhea, leg swelling or leg pain, personal or family history of blood clots, anticoagulation, lightheadedness or syncope, focal numbness or weakness, or other new concerns. Per chart view, she was seen in clinic earlier today and diagnosed with pneumonia with hemoptysis. Review of Systems ROS Constitutional: no fever, no chills Eyes: no visual disturbance, no discharge Ears, Nose, Mouth, Throat: no rhinorrhea, no sore throat Cardiovascular: no chest pain, no palpitations Respiratory: + cough, shortness of breath Gastrointestinal: no abdominal pain, no vomiting, no diarrhea Genitourinary: no dysuria, no hematuria Musculoskeletal: no back pain, no neck stiffness Skin: no rash, no wound Neurological: no focal weakness, no focal numbness Meds/Allgy Home Medications Ambulatory Orders Medication Instructions Recorded Confirmed acetaminophen 500 mg tablet 500 mg PO Q6H PRN 02/01/24 02/01/24 (Tylenol Extra Strength) azithromycin 250 mg tablet See Rx Instructions PO .COMPLEX #6 02/01/24 02/01/24 tabs mecobalamin (vitamin B12) 1,000 1,000 mcg PO QDAY 02/01/24 02/01/24 mcg chewable tablet pzouabfj-rii-mdelx acid 0.4 1 tab PO QDAY 02/01/24 02/01/24 mg-lycopene 300 mcg-lutein 250 mcg tablet (Complete Multivitamin Adult 50 Plus) Allergies Allergies Allergy/AdvReac Type Severity Reaction Status Date / Time tree and shrub pollen Allergy Mild Respiratory Verified 02/06/24 13:45 [facility] Medical History Medical History (Updated 02/06/24 @ 18:25 by Rupal Ann MD) Pre-diabetes Surgical History Surgical History (Updated 02/06/24 @ 13:45 by Zarina Johnson, RN, BSN) S/P hip replacement Social History Social History (Updated 02/06/24 @ 13:45 by Zarina Johnson, RN, BSN) Smoking Status: Former smoker Do you dip or chew tobacco?: No Do you vape?: No Patient requests smoking cessation consult: No Initiate information on smoking cessation: No Relationship: Do you feel safe in your home environment?: Yes Suffered physical, verbal, emotional, or financial abuse?: No POLST Patient has POLST: No Exam Exam Const: no acute distress, non toxic appearing; calm, conversant, pleasant, ambulatory without difficulty; frequent cough Eyes: PERRLA, EOMI ENT: mucous membranes moist Neck: supple, non-tender Resp: no respiratory distress, clear to auscultation bilaterally Card: regular rate and rhythm, no murmurs Abd: non tender diffusely, no rigidity or rebound or guarding Back: no T or L spine tenderness, no CVA tenderness bilaterally Extrem: no deformities, no swelling bilateral lower extremities, 2+ distal pulses all extremities Neuro: ANOx4, senior hardware engineer grossly intact, grossly intact sensation and strength all extremities Skin: no rash, warm and dry Results Vitals Vitals: Vital Signs - 24 hr 02/06/24 13:41 02/06/24 15:15 02/06/24 15:30 Temperature 37.5 C Temperature Source Temporal Artery Scan Pulse Rate 96 H 91 H 61 Respiratory Rate 18 18 17 Blood Pressure 137/70 H 147/64 H 110/59 L O2 Saturation 96 96 98 O2 Source Room air Room air Room air If not protocol: Oxygen Flow, liters/minute Pain Intensity 0 0 02/06/24 16:00 02/06/24 16:30 02/06/24 16:49 Temperature Temperature Source Pulse Rate 87 114 H Respiratory Rate 17 18 Blood Pressure 155/74 H 169/98 H O2 Saturation 96 94 O2 Source Room air Oxymask If not protocol: Oxygen Flow, liters/minute Pain Intensity 0 5 0 02/06/24 17:00 02/06/24 17:14 02/06/24 17:30 Temperature Temperature Source Pulse Rate 113 H 101 H Respiratory Rate 17 18 Blood Pressure 159/93 H 139/80 H O2 Saturation 96 97 O2 Source Non-rebreather mask Non-rebreather mask If not protocol: Oxygen Flow, liters/minute 15 15 Pain Intensity 5 0 0 02/06/24 18:00 02/06/24 18:18 02/06/24 18:34 Temperature Temperature Source Pulse Rate 100 H 105 H 92 H Respiratory Rate 16 20 16 Blood Pressure 136/83 H 144/72 H 127/75 O2 Saturation 97 98 98 O2 Source Non-rebreather mask Non-rebreather mask Non-rebreather mask If not protocol: Oxygen Flow, liters/minute 15 15 15 Pain Intensity 0 0 0 02/06/24 18:39 02/06/24 18:47 Temperature Temperature Source Pulse Rate 101 H 91 H Respiratory Rate 18 18 Blood Pressure 88/63 L 107/51 L O2 Saturation 98 95 O2 Source Room air Non-rebreather mask If not protocol: Oxygen Flow, liters/minute 15 Pain Intensity 0 0 Oxygen O2 Source Non-rebreather mask Labs Labs: Laboratory Tests 02/06/24 02/06/24 02/06/24 14:53 14:54 17:09 WBC 11.3 H RBC 3.63 L Hgb 10.8 L Hct 33.9 L MCV 93.4 MCH 29.8 MCHC 31.9 L RDW 13.2 Plt Count 373 MPV 8.4 Neut # (Auto) 9.6 H Lymph # (Auto) 0.6 L [place] # (Auto) 1.1 H Eos # (Auto) 0.0 Baso # (Auto) 0.0 Absolute Nucleated RBC 0.00 Nucleated RBC % 0.0 PT 12.9 H INR 1.2 APTT 28.1 Sodium 136 Potassium 4.3 Chloride 101 Carbon Dioxide 28 Anion Gap 7.0 BUN 15 Creatinine 0.5 L Estimated GFR (MDRD) 116 Glucose 110 H Calcium 9.2 Total Bilirubin 0.5 AST 19 ALT 14 Alkaline Phosphatase 170 H Troponin I High Sens 5.0 Total Protein 6.8 Albumin 3.5 Globulin 3.3 Albumin/Globulin Ratio 1.1 Nasal Influenza B PCR NOT DETECTED Nasal Influenza A PCR NOT DETECTED Nasal RSV (PCR) NOT DETECTED Nasal SARS-CoV-2 (PCR) NOT DETECTED Blood Type O POSITIVE Antibody Screen NEGATIVE PD Medical Decision Making ED course ED course: This patients presentation is most suggestive of persistent bronchitis or pneumonia in a currently stable patient who is ambulatory, oxygenating well on room air. However, given length of symptoms, with pulmonary embolism also possible, D-dimer has reduced sensitivity at this point, and we will obtain a CTA PE study to assess for alternative causes such as pulmonary embolism. No large-volume hemoptysis currently. No hematemesis. I am also obtaining EKG, labs, viral swab and will closely reassess. EKG: NSR without acute ischemia or immediately concerning interval prolongation. Underlying quality was poor, and I requested repeat EKG, which on repeat continues to show normal sinus rhythm without acute ischemia or immediately concerning interval prolongation. Morphology overall does appear similar. CXR: I agree with rads read on my review of imaging below "FINDINGS: Surgical changes and devices: None. Lungs and pleura: Worsening left upper lobe opacity. Mediastinum: Mediastinal contours appear normal. Heart size is normal. Bones and chest wall: No suspicious bony lesions. Overlying soft tissues appear unremarkable. IMPRESSION: Worsening left upper lobe consolidation, concerning for pneumonia. Mass is also a consideration. Recommend follow-up x-ray in 1-2 months to ensure resolution. Reviewed by: Duran Patel MD on 02/06/2024 2:[address] PDT[address] will further characterize the above. Labs: CBC with mild leukocytosis, anemia to 10.8, no thrombocytopenia. CMP with ALP elevation which in context could suggest bone invasion of a mass, pending CT. Viral panel negative. Blood cultures x2 added. I received a call from radiology with critical CT finding; patient appears to have ruptured her aorta and likely bled into her lung, leading to hemoptysis. I immediately reassessed patient, who had remained stable to this point. She very clearly confirms with me she is not only DNR/DNI, but would NOT want surgery for this. Son at bedside corroborating. They are fully aware this could rapidly cause her to pass away. I have ordered esmolol gtt, dilaudid, and will add TXA. I have still asked for STAT Cardiothoracic consult. Soon after our conversation, patient started having massive hemoptysis. We have no nebulized TXA here. CT: I agree with radiology reads of imaging on my independent review of imaging. "FINDINGS: Image quality: Excellent. Large vessels: The wall of the descending aorta is discontinuous, with contrast extravasation extending into the left upper lobe (series 4, image 28). Lungs and pleura: Fluid is extending into the parenchyma of the left upper lung zone, and there is filling of the airways. Small left pleural effusion. Mediastinum: Heart size is enlarged. No pericardial effusion. No large vessel abnormality. No mediastinal adenopathy by size criteria. Chest wall and lower neck: Thyroid is unremarkable. No axillary or supraclavicular adenopathy by size. Bones: No aggressive osseous abnormality. Upper Abdomen: Unremarkable. IMPRESSION: Ruptured descending aorta, with a contained leak. Above discussed with KAVITHA HESS at 4:33 PM on 02/06/2024. Reviewed by: Duran Patel MD on 02/06/2024 4:36 PM PDT Approved by: Duran Patel MD on 02/06/2024 4:36 PM PDT Station ID: [id number] Report Electronically Signed by Duran Patel MD 02/06/24 1631 02/06/24 1636" I spoke with transfer center at 1650; they will call back with surgery. INR WNL. PTT WNL. Consult: I spoke with Dr. Aguilar of Vascular surgery, reviewing case. Hemoptysis suggests there could be infection; any operation would be palliative. Stent is possible to stop bleeding. However, she will likely pass away from this regardless, this would only delay outcome. Surgery would also require intubation. If she changes her mind and wants transfer, she would need to be flown emergently to [facility]. Patient is stating clearly to me she does NOT want transfer or surgery, and that she wants to at home. I spoke with family including daughter on phone as well, reviewing options of above surgery, and patient is currently choosing very clearly to pursue palliative care here. I had nursing contact Hospice to discuss; no answer yet. I spoke with Dr. Ann at [phone], reviewing case in case patient pursues palliative care inpatient here. Hospice would not be sufficiently read for patient at home. Again, patient fully understands she is at imminent risk of morbidity/mortality by not pursuing more aggressive treatmetnt/transfer; we are giving the maximal treatment she would want. She states she wants to be with her , who recently. She demonstrates capacity. CRITICAL CARE TIME: outside of procedures, I spent 125 minutes assessing, reassessing, resuscitating this patient, speaking with family and consultants, and interpreting studies and documentation, in the setting of massive hemoptysis. Discharge Plan Discharge Patient Disposition: 66 [facility] DC/Xfer Condition: Critical Clinical Impression: Massive hemoptysis, Aortic rupture Prescriptions: No Action acetaminophen [Tylenol Extra Strength] 500 mg tablet 500 mg PO Q6H PRN mecobalamin (vitamin B12) 1,000 mcg tablet,chewable 1,000 mcg PO QDAY Complete MV Adult 50 Plus 0.4 mg-300 mcg- 250 mcg tablet 1 tab PO QDAY azithromycin 250 mg tablet See Rx Instructions PO .COMPLEX Qty: 6 0RF Rx Instructions: For 250 mg dose pack: take 500 mg today (day 1), then 250 mg for 4 days (days 2-5) PO Print Language: Telugu
--- NOTE | 2024-02-06 14:39 | XRAY Report ---
PROCEDURE: XR Chest 2V INDICATIONS: hemoptysis TECHNIQUE: 2 views of the chest were acquired. COMPARISON: 02/01/2024 FINDINGS: Surgical changes and devices: None. Lungs and pleura: Worsening left upper lobe opacity. Mediastinum: Mediastinal contours appear normal. Heart size is normal. Bones and chest wall: No suspicious bony lesions. Overlying soft tissues appear unremarkable. IMPRESSION: Worsening left upper lobe consolidation, concerning for pneumonia. Mass is also a consideration. Anatoly mmend follow-up x-ray in 1-2 months to ensure resolution. Reviewed by: Duran Patel MD on 02/06/2024 2:37 PM PDT Approved by: Duran Patel MD on 02/06/2024 2:37 PM PDT Station ID: [id number]
[2024-02-06 15:03] LABS: BASOPHILS % (AUTO) 0.3 %; EOSINOPHILS % (AUTO) 0.4 %; HCT - HEMATOCRIT 33.9 % (37.0-47.0); HGB - HEMOGLOBIN 10.8 g/dL (12.0-16.0); LYMPHOCYTES # (AUTO) 0.6 10^3/uL (1.5-3.5); LYMPHOCYTES % (AUTO) 5.2 %; MEAN CORPUSCULAR HEMOGLOBIN 29.8 pg (27.0-31.0); MEAN CORPUSCULAR HGB CONC 31.9 g/dL (32.0-36.0); MEAN CORPUSCULAR VOLUME 93.4 fL (81.0-99.0); MEAN PLATELET VOLUME 8.4 fL (7.9-10.8); MONOCYTES # (AUTO) 1.1 10^3/uL (0.0-1.0); MONOCYTES % (AUTO) 9.3 %; NEUTROPHILS # (AUTO) 9.6 10^3/uL (1.5-6.6); NEUTROPHILS % (AUTO) 84.2 %; PLT - PLATELET COUNT 373 10^3/uL (130-450); RED BLOOD COUNT 3.63 10^6/uL (4.20-5.40); RED CELL DISTRIBUTION WIDTH 13.2 % (12.0-15.0); WHITE BLOOD COUNT 11.3 x10^3/uL (4.8-10.8)
[2024-02-06 15:22] LABS: ALBUMIN 3.5 g/dL (3.2-5.5); ALBUMIN/GLOBULIN RATIO 1.1 (1.0-2.2); BILIRUBIN,TOTAL 0.5 mg/dL (0.2-1.0); CALCIUM 9.2 mg/dL (8.5-10.3); CREATININE 0.5 mg/dL (0.6-1.3); POTASSIUM 4.3 mmol/L (3.5-4.5); TOTAL PROTEIN 6.8 g/dL (6.4-8.9)
[2024-02-06] MEDS ORDERED: iohexoL-300 100 ML VIAL ONE (15:34)
[2024-02-06 15:58] LABS: INFLUENZA A- RESP PCR PANEL NOT DETECTED; INFLUENZA B - RESP PCR PANEL NOT DETECTED; RSV- RESP PCR PANEL NOT DETECTED; SARS-CoV-2 -RESP PCR PANEL NOT DETECTED
--- NOTE | 2024-02-06 16:37 | CT Report ---
PROCEDURE: CT Angio Chest INDICATIONS: assess for PE; hemoptysis, SOB CONTRAST: omni 300, 80 TECHNIQUE: After the administration of intravenous contrast, 2 mm axial images were acquired from the pulmonary apices to the posterior costophrenic angles during the arterial phase. In addition, 1 mm lung kernel and 5 mm soft tissue kernel reconstructions were performed. 3-dimensional coronal oblique maximum int ensity projection (MIP) reformats, 8 mm axial MIP, and 5 mm coronal and sagittal MPR reformats were t hen performed through the thorax. For radiation dose reduction, the following was used: automated exp osure control, adjustment of mA and/or kV according to patient size. COMPARISON: X-ray 02/06/2024, 02/01/2024 FINDINGS: Image quality: Excellent. Large vessels: The wall of the descending aorta is discontinuous, with contrast extravasation extendi ng into the left upper lobe (series 4, image 28). Lungs and pleura: Fluid is extending into the parenchyma of the left upper lung zone, and there is fi lling of the airways. Small left pleural effusion. Mediastinum: Heart size is enlarged. No pericardial effusion. No large vessel abnormality. No mediast inal adenopathy by size criteria. Chest wall and lower neck: Thyroid is unremarkable. No axillary or supraclavicular adenopathy by size . Bones: No aggressive osseous abnormality. Upper Abdomen: Unremarkable. IMPRESSION: Ruptured descending aorta, with a contained leak. Above discussed with KAVITHA HESS at 4:33 PM on 02/06/2024. Reviewed by: Duran Patel MD on 02/06/2024 4:36 PM PDT Approved by: Duran Patel MD on 02/06/2024 4:36 PM PDT Station ID: [id number]
[2024-02-06] MEDS ORDERED: HYDROmorphone 1 MG/ML CARPUJECT IVP PRN (16:46)
[2024-02-06 16:47] LABS: PARTIAL THROMBOPLASTIN TIME 28.1 secs (24.9-33.3)
[2024-02-06] MEDS: HYDROmorphone 0.5 MG/0.5 ML SYRINGE IVP STA (16:49)
[2024-02-06] MEDS: ESMOLOL 2.5 GM/250 ML BAG IV STA (16:51)
[2024-02-06 16:52] LABS: INR 1.2 (0.8-1.2); PT - PROTHROMBIN TIME 12.9 secs (9.9-12.6)
[2024-02-06] MEDS: TRANEXAMIC ACID IN NACL 1,000 MG/100 ML BAG IV STA (17:00)
[2024-02-06] MEDS: iohexoL-300 100 ML VIAL IVP ONE (17:16)
[2024-02-06] MEDS ORDERED: NICARDIPINE HCL 25 MG/10 ML VIAL IV ONE (17:58)
[2024-02-06] MEDS: NICARDIPINE HCL 25 MG in SODIUM CHLORIDE 0.9% 240 ML IV STA (18:05)
--- NOTE | 2024-02-06 18:16 | HISTORY & PHYSICAL EXAMINATION ---
Chief Complaint Chief Complaint Chief Complaint: Hemoptysis History of Present Illness Admitted From Admitted From:: Home History of Present Illness HPI Comment/Other: Patient is a 88-year-old female with a history of prediabetes who presents due to repeated hemoptysis at her family doctor's office. Per patient, approximately a week ago, she noticed that she was weak, had cough, productive sputum production. She went to her physician, who treated her for a possible pneumonia in the outpatient setting. While in a follow-up appointment for persistent cough earlier today, she had an episode of hemoptysis. There were blood clots in it, as well as a lot of thick blood. As such, her physician told her to come to the emergency room. While here, she had repeated episode of large-volume hemoptysis. She also complained of some shortness of breath. 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 Vital signs remained stable. Laboratory results were also reviewed, hemoglobin still stable at 10.8. Her other labs were largely unremarkable. Her care was discussed with Dr. Collins, the ED physician. He had already spoken with vascular surgery at [facility], Dr. Aguilar, and was told that hemoptysis indicates there could be infection. Any operation would be palliative regardless. Surgery would also require intubation and temporary reversal of her DNR/DNI status. She would need to be flown emergently to [facility]. The ED physician, Dr. Collins, as well as myself, had seperate and extensive discussions with herself, as well as her son, Ary, who was present at bedside. She is alert and oriented x 3, a very healthy 88-year-old who definitely has capacity to make the decision for herself. She does not want to be transferred, she does not want any procedures or surgery. Furthermore, she does not want to be intubated, or resuscitated. She would like to pursue Hospice care. She is adamant about not pursuing any aggressive medical treatment. Hospice was explained to her; she was told that hospice care is going to be focused on her comfort, a.k.a., we would make sure she was not in any pain, she is not feeling anxious, and try to minimize the suffering that the likely ongoing hemoptysis will bring her. She stated that her was in hospice for 6 months for passing away earlier this summer, so she was very familiar with the process. She would like to be hospice at home if that was possible. It was reiterated, and it is very clear to her that by not electing for medical treatment, she is likely going to pass. She demonstrates understanding of this, as does her son at bedside. Meds/Allgy Home Medications Ambulatory Orders Medication Instructions Recorded Confirmed acetaminophen 500 mg tablet 500 mg PO Q6H PRN 02/01/24 02/01/24 (Tylenol Extra Strength) azithromycin 250 mg tablet See Rx Instructions PO .COMPLEX #6 02/01/24 02/01/24 tabs mecobalamin (vitamin B12) 1,000 1,000 mcg PO QDAY 02/01/24 02/01/24 mcg chewable tablet [id number] acid 0.4 1 tab PO QDAY 02/01/24 02/01/24 mg-lycopene 300 mcg-lutein 250 mcg tablet (Complete Multivitamin Adult 50 Plus) Allergies Allergies Allergy/AdvReac Type Severity Reaction Status Date / Time tree and shrub pollen Allergy Mild Respiratory Verified 02/06/24 13:45 [facility] Medical History Medical History (Updated 02/06/24 @ 18:25 by Rupal Ann MD) Pre-diabetes Surgical History Surgical History (Updated 02/06/24 @ 13:45 by Zarina Johnson, RN, BSN) S/P hip replacement Social History Social History (Updated 02/06/24 @ 13:45 by Zarina Johnson, TOO, BSN) Smoking Status: Former smoker Do you dip or chew tobacco?: No Do you vape?: No Patient requests smoking cessation consult: No Initiate information on smoking cessation: No Relationship: Do you feel safe in your home environment?: Yes Suffered physical, verbal, emotional, or financial abuse?: No POLST Patient has POLST: No Review of Systems Constitutional Reports: Fatigue, Chills and Weakness; Denies: Fever, Malaise, Diaphoresis, Night sweats, Changes in appetite or eating habits, Poor appetite, Weight gain or Weight loss Eyes Denies: Pain, Irritation, Amaurosis or Blurry vision Ears, nose, mouth, and throat Denies: Ear pain, Ear discharge, Hearing loss, Hearing aids, Tinnitus, Neck pain or Throat swelling Cardiovascular Reports: chest pain, shortness of breath with exertion and shortness of breath when lying down; Denies: Irregular heart rate, palpitations, edema, swelling of feet/ankles or Syncope Respiratory Reports: Shortness of breath, Cough and Coughing up blood Gastrointestinal Reports: Adolfo blood emesis; Denies: Abdominal pain, Abdominal distention, Nausea, Vomiting or Bile emesis Genitourinary Denies: Painful urination, Urinary frequency, Urinary urgency or Nocturia Musculoskeletal Denies: Back pain, Neck pain, Extremity pain, Extremity swelling or Gout Integumentary/Breast Denies: Rash, Itching, Dryness, Redness, Skin pain, Skin tenderness or Skin swelling Neurological Reports: General weakness; Denies: Headache, Focal weakness, Weakness in extremities, Numbness in extremities, Pre-existing deficit, Abnormal gait or Lack of coordination Psychiatric Denies: Depression, Anxiety, Mood swings, Panic attacks, Change in sleep pattern, Hopelessness or Loss of interest Endocrine Reports: Fatigue; Denies: Excessive urination, Excessive thirst or Polyphagia Hematologic/Lymphatic Reports: Anemia, Easy bruising, Easy bleeding and Blood clots Allergic/Immunologic Denies: Hives or Throat swelling Prior Level of Functionality: Fully functional, independent at baseline. Exam Constitutional normal general appearance, distress noted (mild), abnormal body habitus (thin) and alert HENMT normocephalic, head/scalp atraumatic and oropharynx abnormal (dried blood around oropharynx) Eyes PERRL, EOMs intact bilaterally and no papilledema Neck/C-Spine abnormal to visual inspection, tracheal deviation noted, cervical spine tenderness noted and abnormal cervical ROM noted Lymph no lymphadenopathy noted and no lymphedema noted Chest inspection of chest normal and palpation of chest normal Respiratory breath sounds equal bilaterally, normal respiratory effort and clear to auscultation bilaterally Cardiovascular normal heart rate noted, regular rhythm noted, gallop noted, rub noted and murmur noted Gastrointestinal abdomen normal to inspection, abdomen soft to palpation and nontender to palpation Genitourinary no CVA tenderness and bladder normal to palpation Back/Pelvis spine normal to inspection and no thoracic spine tenderness Extremities normal to inspection and full ROM Neurology no movement abnormality noted, no focal motor deficit noted and speech normal Psychiatry oriented x3, thought process normal, cooperative and affect normal Skin skin color normal, rash noted, lesion(s) noted, ecchymosis noted, wound(s) noted, laceration(s) noted and skin turgor abnormal Conclusion/Plan Problem List (1) Aortic rupture: Plan: Patient presented with ongoing cough for 1 to 2 weeks. She was being treated as a community-acquired pneumonia outpatient with antibiotics. Had an episode of hemoptysis at her family doctors office who sent her here. CTA shows ruptured descending aorta with a contained leak. Treatment options were presented to the patient after discussion with vascular surgeon at [facility]. Patient has full capacity, is alert and oriented x 3 and has decided to pursue hospice care, she is DO NOT RESUSCITATE and DO NOT INTUBATE. She understands that this means there will be no aggressive medical treatment and that she will pass from this. We will discontinue nicardipine drip and not start esmolol, and hold all other medical treatments at this time. Patient's son is at bedside who is agreeable with his mother's choice. (2) Massive hemoptysis: Plan: See above. (3) Hospice care patient: Plan: We will employ comfort care orders for this patient. Morphine, Ativan, Robitussin, oxygen as needed. We will continue comfort feeds. She understands that she may not have as much mental clarity as she does right now when we start employing these methods to make her comfortable, and is okay with that. Hospice consulted, will follow-up with them during office hours in the morning. Patient would prefer to be at home. Lab Results Lab results reviewed: Yes 02/06/24 14:54 02/06/24 14:54 Diagnostic Imaging Results Diagnostic Imaging Results: positive Final report reviewed Core Measures Anticipated LOS I expect patient to be DC'd or transferred within 96 hours.: Yes DVT/VTE - Prophylaxis VTE/DVT Device ordered at admit?: No Not Ordered - Medical Reason: Not indicated VTE/DVT Prophylaxis med ordered at admit?: No Not Ordered - Medical Reason: Not indicated Stroke - Rehab Assessment Rehab services assessment to be ordered?: No AMI - Statin at Admit Aspirin Prescribed on Admit: No
[2024-02-06] MEDS: ESMOLOL 2.5 GM/250 ML BAG IV SCH (20:08)
[2024-02-06] MEDS: guaiFENesin/DEXTROMETHORPHAN 10 ML UDC PO PRN (20:20)
[2024-02-06] MEDS ORDERED: ESMOLOL 2.5 GM/250 ML BAG IV ONE (20:28)
[2024-02-06] MEDS: LORazepam 1 MG TABLET PO PRN (23:27)
[2024-02-06] MEDS: NICARDIPINE HCL 25 MG in SODIUM CHLORIDE 0.9% 240 ML IV PRN (23:28)
[2024-02-07] MEDS: MORPHINE 2 MG/ML CARPUJECT IVP PRN (08:00)
--- NOTE | 2024-02-07 11:23 | PROVIDER PROGRESS NOTE ---
Subjective Subjective Subjective: Patient is doing well today. She had no more episodes of hemoptysis overnight. She is coughing. She appears comfortable, she has required some Ativan and Robitussin overnight. Today, her daughter is at bedside, we went over the plan. They still have some family members coming in from out of town. As such, they would like the esmolol and Cardene drip to be continued. I spoke with the hospice nurse at at [facility]. The earliest they can have home hospice set up for her is on Thursday. She will be coming in today around 4 PM to talk with the family about their options and what home hospice will look like for Ms. Pierson. Current Medications Current Medications Current Medications: Current Medications Generic Name Dose Route Start Last Admin Trade Name Freq PRN Reason Stop Dose Admin Guaifenesin 10 ml 02/06/24 20:05 02/07/24 08:00 Guaifenesin/Dextromethorphan 10 Ml Udc PO 10 ml Q6HR PRN Administration Cough Hydromorphone HCl 1 mg 02/06/24 16:46 Hydromorphone 1 Mg/Ml Carpuject IVP PRN PRN Shortness of Air/Wheezing Nicardipine HCl 25 mg/ Sodium 250 mls @ 50 mls/hr 02/06/24 21:02 02/07/24 02:00 Chloride IV 1 mg/hr TITR PRN 10 mls/hr SBB<100 Titration Protocol 5 MG/HR Esmolol HCl 2.5 gm in 250 mls @ 14.492 mls/hr 02/06/24 22:00 02/07/24 09:10 Brevibloc IV Infused .[id number] LENNY Titration Protocol 0.05 MG/KG/MIN Labetalol HCl 200 mg 02/07/24 11:00 Labetalol 100 Mg Tablet PO BID LENNY Lorazepam 1 mg 02/06/24 20:05 02/07/24 08:00 Lorazepam 1 Mg Tablet PO 1 mg Q6H PRN Administration Anxiety/Agitation Morphine Sulfate 2 mg 02/06/24 20:05 02/07/24 08:00 Morphine 2 Mg/Ml Carpuject IVP 2 mg Q2HR PRN Administration Severe Pain (Level 7-10)/ SOA Multi-Ingredient Mouthwash/Gargle 5 ml 02/06/24 20:05 Gi Cocktail 120 Ml Bottle PO Q2H PRN Mucositis Nifedipine 60 mg 02/07/24 11:00 Nifedipine Er 30 Mg Tablet PO DAILY LENNY Ondansetron HCl 4 mg 02/06/24 20:05 Ondansetron 4 Mg/2 Ml Vial IVP Q8H PRN Nausea / Vomiting Objective Vital Signs/Intake & Output Reviewed Vital Signs: Yes Vital Signs: Vital Signs x48h Temp Pulse Resp BP Pulse Ox O2 Flow Rate 02/07/24 09:00 71 21 96/42 L 91 L 5 02/07/24 07:00 85 20 105/53 L 96 5 02/07/24 06:00 98.8 F 76 23 86/43 L 98 5 02/07/24 04:00 77 20 101/49 L 94 5 Intake & Output: Intake & Output 02/05/24 02/06/24 02/07/24 02/08/24 05:59 05:59 05:59 05:59 Intake Total 1401 / 1401 310 / 310 Balance 1401 / 1401 310 / 310 Weight (kg) 46.5 kg Objective General Appearance: positive No acute distress; negative Anxious or Lethargic Eyes Bilateral: positive Normal inspection, PERRL and EOMI ENT: positive Pharynx nml and No signs of dehydration Neck: positive Nml inspection, Thyroid nml and No JVD Respiratory: positive Chest non-tender, No respiratory distress and Breath sounds nml Cardiovascular: positive Regular rate & rhythm, No murmur and No gallop Abdomen: positive Non-tender, No organomegaly and Nml bowel sounds Back: positive Nml inspection; negative CVA tenderness (R) or CVA tenderness (L) Skin: positive Color nml, No rash and Warm Extremities: positive Non-tender, Full ROM and No pedal edema Neurologic/Psychiatric: positive Oriented x3 and Motor nml Lab Results 02/06/24 14:54 02/06/24 14:54 Other Labs: Lab Results x24hrs 02/06/24 02/06/24 02/06/24 Range/Units 17:09 14:54 14:53 WBC 11.3 H (4.8-10.8) x10^3/uL RBC 3.63 L (4.20-5.40) 10^6/uL Hgb 10.8 L (12.0-16.0) g/dL Hct 33.9 L (37.0-47.0) % MCV 93.4 (81.0-99.0) fL MCH 29.8 (27.0-31.0) pg MCHC 31.9 L (32.0-36.0) g/dL RDW 13.2 (12.0-15.0) % Plt Count 373 (130-450) 10^3/uL MPV 8.4 (7.9-10.8) fL Neut # (Auto) 9.6 H (1.5-6.6) 10^3/uL Lymph # (Auto) 0.6 L (1.5-3.5) 10^3/uL [place] # (Auto) 1.1 H (0.0-1.0) 10^3/uL Eos # (Auto) 0.0 (0.0-0.7) 10^3/uL Baso # (Auto) 0.0 (0.0-0.1) 10^3/uL Absolute Nucleated RBC 0.00 x10^3/uL Nucleated RBC % 0.0 /100WBC PT 12.9 H (9.9-12.6) secs INR 1.2 (0.8-1.2) APTT 28.1 (24.9-33.3) secs Sodium 136 (135-145) mmol/L Potassium 4.3 (3.5-4.5) mmol/L Chloride 101 (101-111) mmol/L Carbon Dioxide 28 (21-32) mmol/L Anion Gap 7.0 (6-13) BUN 15 (6-20) mg/dL Creatinine 0.5 L (0.6-1.3) mg/dL Estimated GFR (MDRD) 116 (>89) Glucose 110 H (74-104) mg/dL Calcium 9.2 (8.5-10.3) mg/dL Total Bilirubin 0.5 (0.2-1.0) mg/dL AST 19 (10-42) IU/L ALT 14 (10-60) IU/L Alkaline Phosphatase 170 H (42-121) IU/L Troponin I High Sens 5.0 (2.3-14.8) ng/L Total Protein 6.8 (6.4-8.9) g/dL Albumin 3.5 (3.2-5.5) g/dL Globulin 3.3 (2.1-4.2) g/dL Albumin/Globulin Ratio 1.1 (1.0-2.2) Nasal Influenza B PCR NOT DETECTED Nasal Influenza A PCR NOT DETECTED Nasal RSV (PCR) NOT DETECTED Nasal SARS-CoV-2 (PCR) NOT DETECTED Blood Type O POSITIVE Antibody Screen NEGATIVE Diagnostic Imaging Diagnostic Imaging Results: positive Final report reviewed Diagnostic Imaging Comments: Ruptured descending aorta, with a contained leak. Addendum states differential for this process includes penetrating aortic ulcer or mycotic aneurysm caused by adjacent pneumonia. Other Results/Comments Other Results/Comments: Ruptured descending aorta, with a contained leak. Assessment/Plan Problem List (1) Aortic rupture: Impression: Patient presented with ongoing cough for 1 to 2 weeks. She was being treated as a community-acquired pneumonia outpatient with antibiotics. Had an episode of hemoptysis at her family doctors office who sent her here. CTA shows ruptured descending aorta with a contained leak. Treatment options were presented to the patient after discussion with vascular surgeon at [facility]. Patient has full capacity, is alert and oriented x 3 and has decided to pursue hospice care, she is DO NOT RESUSCITATE and DO NOT INTUBATE. She understands that this means there will be no aggressive medical treatment and that she will pass from this. As patient has family coming into town, at this time, we will continue esmolol drip, nicardipine drip. I have also initiated oral supplementation with labetalol and Procardia to help blood pressure goals as we may run out of IV medication prior to family's arrival. Patient's son is at bedside who is agreeable with his mother's choice. (2) Massive hemoptysis: Impression: See above. (3) Hospice care patient: Impression: We will employ comfort care orders for this patient. Morphine, Ativan, Robitussin, oxygen as needed. We will continue comfort feeding. She understands that she may not have as much mental clarity as she does right now when we start employing these methods to make her comfortable, and is okay with that. Hospice consulted, spoken with earlier this morning. The earliest they can enroll her in hospice is Thursday. Hospice nurse, César, will be coming in today to speak with family around 4 PM.
[2024-02-07] MEDS ORDERED: ONDANSETRON 4 MG/2 ML VIAL IVP PRN (11:33)
[2024-02-07] MEDS: LABETALOL 100 MG TABLET PO SCH ×2 (11:48→18:57)
[2024-02-07] MEDS: NIFEdipine ER 30 MG TABLET PO SCH (11:48)
[2024-02-07] MEDS: ONDANSETRON 4 MG/2 ML VIAL IVP PRN (11:50)
[2024-02-07] MEDS: GI COCKTAIL 120 ML BOTTLE PO PRN (11:52)
[2024-02-07] MEDS ORDERED: LABETALOL 100 MG TABLET PO SCH (19:00)
[2024-02-07] MEDS: LORazepam 2 MG/ML VIAL IVP PRN (19:05)
--- NOTE | 2024-02-08 08:49 | PROVIDER PROGRESS NOTE ---
Subjective Subjective Subjective: Patient is doing well today. She had no more episodes of hemoptysis overnight. She is coughing. She appears comfortable, she has required some Ativan and Robitussin overnight. Patient's 3 remaining children were in [place], and are flying in today. They will be here around noon. At that time, she will be transferred out of the ICU to med/surg floor, and her blood pressure controlling medications will be stopped including the esmolol and Cardene drip, as well as the oral labetalol and Procardia. Patient's family was spoken with yesterdaypatient's son, daughter, [id number], family friends oral at bedside. Their preference is for her to pass in the hospital, as with her condition, they are wary of the process. However, was explained that there is no way to determine how long the process will take. Agreeable to hospice with [facility]. Current Medications Current Medications Current Medications: Current Medications Generic Name Dose Route Start Last Admin Trade Name Freq PRN Reason Stop Dose Admin Guaifenesin 10 ml 02/06/24 20:05 02/07/24 08:00 Guaifenesin/Dextromethorphan 10 Ml Udc PO 10 ml Q6HR PRN Administration Cough Hydromorphone HCl 1 mg 02/06/24 16:46 Hydromorphone 1 Mg/Ml Carpuject IVP PRN PRN Shortness of Air/Wheezing Nicardipine HCl 25 mg/ Sodium 250 mls @ 50 mls/hr 02/06/24 21:02 02/07/24 19:00 Chloride IV 0 mg/hr TITR PRN 0 mls/hr SBB<100 Titration Protocol 5 MG/HR Esmolol HCl 2.5 gm in 250 mls @ 14.492 mls/hr 02/06/24 22:00 02/07/24 16:00 Brevibloc IV 0 mg/kg/min .[id number] LENNY 0 mls/hr Titration Protocol 0.05 MG/KG/MIN Labetalol HCl 100 mg 02/07/24 19:00 02/07/24 18:57 Labetalol 100 Mg Tablet PO Not Given BID LENNY Lorazepam 1 mg 02/06/24 20:05 02/07/24 08:00 Lorazepam 1 Mg Tablet PO 1 mg Q6H PRN Administration Anxiety/Agitation Lorazepam 1 mg 02/07/24 11:49 02/08/24 02:14 Lorazepam 2 Mg/Ml Vial IVP 1 mg Q2H PRN Administration Anxiety Morphine Sulfate 2 mg 02/06/24 20:05 02/07/24 16:30 Morphine 2 Mg/Ml Carpuject IVP 2 mg Q2HR PRN Administration Severe Pain (Level 7-10)/ SOA Multi-Ingredient Mouthwash/Gargle 5 ml 02/06/24 20:05 02/07/24 13:32 Gi Cocktail 120 Ml Bottle PO 5 ml Q2H PRN Administration Mucositis Nifedipine 60 mg 02/07/24 11:00 02/07/24 11:48 Nifedipine Er 30 Mg Tablet PO 60 mg DAILY LENNY Administration Ondansetron HCl 4 mg 02/06/24 20:05 02/07/24 11:50 Ondansetron 4 Mg/2 Ml Vial IVP 4 mg Q8H PRN Administration Nausea / Vomiting Ondansetron HCl 4 mg 02/07/24 11:33 Ondansetron 4 Mg/2 Ml Vial IVP Q4HR PRN Nausea / Vomiting Objective Vital Signs/Intake & Output Reviewed Vital Signs: Yes Vital Signs: Vital Signs x48h O2 Flow Rate 02/08/24 08:04 6 Intake & Output: Intake & Output 02/06/24 02/07/24 02/08/24 02/09/24 05:59 05:59 05:59 05:59 Intake Total 1401 / 1401 981 / 981 Balance 1401 / 1401 981 / 981 Weight (kg) 46.5 kg Objective General Appearance: positive No acute distress and Lethargic; negative Anxious Eyes Bilateral: positive Normal inspection, PERRL and EOMI ENT: positive Pharynx nml and No signs of dehydration Neck: positive Nml inspection, Thyroid nml and No JVD Respiratory: positive Chest non-tender, No respiratory distress and Breath sounds nml Cardiovascular: positive Regular rate & rhythm, No murmur and No gallop Abdomen: positive Non-tender, No organomegaly and Nml bowel sounds Back: positive Nml inspection; negative CVA tenderness (R) or CVA tenderness (L) Skin: positive Color nml, No rash and Warm Extremities: positive Non-tender, Full ROM and No pedal edema Neurologic/Psychiatric: positive Oriented x3 and Motor nml Lab Results 02/06/24 14:54 02/06/24 14:54 Other Labs: Lab Results x24hrs 02/06/24 02/06/24 02/06/24 Range/Units 17:09 14:54 14:53 WBC 11.3 H (4.8-10.8) x10^3/uL RBC 3.63 L (4.20-5.40) 10^6/uL Hgb 10.8 L (12.0-16.0) g/dL Hct 33.9 L (37.0-47.0) % MCV 93.4 (81.0-99.0) fL MCH 29.8 (27.0-31.0) pg MCHC 31.9 L (32.0-36.0) g/dL RDW 13.2 (12.0-15.0) % Plt Count 373 (130-450) 10^3/uL MPV 8.4 (7.9-10.8) fL Neut # (Auto) 9.6 H (1.5-6.6) 10^3/uL Lymph # (Auto) 0.6 L (1.5-3.5) 10^3/uL [place] # (Auto) 1.1 H (0.0-1.0) 10^3/uL Eos # (Auto) 0.0 (0.0-0.7) 10^3/uL Baso # (Auto) 0.0 (0.0-0.1) 10^3/uL Absolute Nucleated RBC 0.00 x10^3/uL Nucleated RBC % 0.0 /100WBC PT 12.9 H (9.9-12.6) secs INR 1.2 (0.8-1.2) APTT 28.1 (24.9-33.3) secs Sodium 136 (135-145) mmol/L Potassium 4.3 (3.5-4.5) mmol/L Chloride 101 (101-111) mmol/L Carbon Dioxide 28 (21-32) mmol/L Anion Gap 7.0 (6-13) BUN 15 (6-20) mg/dL Creatinine 0.5 L (0.6-1.3) mg/dL Estimated GFR (MDRD) 116 (>89) Glucose 110 H (74-104) mg/dL Calcium 9.2 (8.5-10.3) mg/dL Total Bilirubin 0.5 (0.2-1.0) mg/dL AST 19 (10-42) IU/L ALT 14 (10-60) IU/L Alkaline Phosphatase 170 H (42-121) IU/L Troponin I High Sens 5.0 (2.3-14.8) ng/L Total Protein 6.8 (6.4-8.9) g/dL Albumin 3.5 (3.2-5.5) g/dL Globulin 3.3 (2.1-4.2) g/dL Albumin/Globulin Ratio 1.1 (1.0-2.2) Nasal Influenza B PCR NOT DETECTED Nasal Influenza A PCR NOT DETECTED Nasal RSV (PCR) NOT DETECTED Nasal SARS-CoV-2 (PCR) NOT DETECTED Blood Type O POSITIVE Antibody Screen NEGATIVE Diagnostic Imaging Diagnostic Imaging Results: positive Final report reviewed Diagnostic Imaging Comments: Ruptured descending aorta, with a contained leak. Addendum states differential for this process includes penetrating aortic ulcer or mycotic aneurysm caused by adjacent pneumonia. Other Results/Comments Other Results/Comments: Ruptured descending aorta, with a contained leak. Assessment/Plan Problem List (1) Aortic rupture: Impression: Patient presented with ongoing cough for 1 to 2 weeks. She was being treated as a community-acquired pneumonia outpatient with antibiotics. Had an episode of hemoptysis at her family doctors office who sent her here. CTA shows ruptured descending aorta with a contained leak. Treatment options were presented to the patient after discussion with vascular surgeon at [facility]. Patient has full capacity, is alert and oriented x 3 and has decided to pursue hospice care, she is DO NOT RESUSCITATE and DO NOT INTUBATE. Patient's son is at bedside who is agreeable with his mother's choice. She understands that this means there will be no aggressive medical treatment and that she will pass from this. As patient has family coming into town around noon today (three remaining children), at this time, we will continue esmolol drip, nicardipine drip. I have also initiated oral supplementation with labetalol and Procardia to help blood pressure goals. Once they are here, we will stop all medical therapy including the above drips as well as the antihypertensives. Will stop monitoring vital signs. She will effectively be fully transitioned to comfort care. Patient and patient's family are opting for hospice [facility]. spoilage worker is working on coordinating with them in terms of equipment required at home. (2) Massive hemoptysis: Impression: See above. (3) Hospice care patient: Impression: We will employ comfort care orders for this patient. Morphine, Ativan, Robitussin, oxygen for comfort, Zofran as needed. We will continue comfort feeding. She understands that she may not have as much mental clarity as she does right now when we start employing these methods to make her comfortable, and is okay with that. Patient and patient's family are opting for hospice [facility]. spoilage worker is working on coordinating with them in terms of equipment required at home.
--- NOTE | 2024-02-09 15:17 | PROVIDER PROGRESS NOTE ---
Subjective Prog Note Date Prog Note Date: 02/09/24 Prog Note Time: 15:15 Subjective Subjective: Pt calm in bed. No complaints. Family at bedside. Current Medications Current Medications Current Medications: Current Medications Generic Name Dose Route Start Last Admin Trade Name Freq PRN Reason Stop Dose Admin Guaifenesin 10 ml 02/06/24 20:05 02/08/24 19:43 Guaifenesin/Dextromethorphan 10 Ml Udc PO 10 ml Q6HR PRN Administration Cough Hydromorphone HCl 1 mg 02/06/24 16:46 Hydromorphone 1 Mg/Ml Carpuject IVP PRN PRN Shortness of Air/Wheezing Lorazepam 1 mg 02/06/24 20:05 02/07/24 08:00 Lorazepam 1 Mg Tablet PO 1 mg Q6H PRN Administration Anxiety/Agitation Lorazepam 1 mg 02/07/24 11:49 02/09/24 00:11 Lorazepam 2 Mg/Ml Vial IVP 1 mg Q2H PRN Administration Anxiety Morphine Sulfate 2 mg 02/06/24 20:05 02/07/24 16:30 Morphine 2 Mg/Ml Carpuject IVP 2 mg Q2HR PRN Administration Severe Pain (Level 7-10)/ SOA Multi-Ingredient Mouthwash/Gargle 5 ml 02/06/24 20:05 02/08/24 16:50 Gi Cocktail 120 Ml Bottle PO 5 ml Q2H PRN Administration Mucositis Ondansetron HCl 4 mg 02/06/24 20:05 02/07/24 11:50 Ondansetron 4 Mg/2 Ml Vial IVP 4 mg Q8H PRN Administration Nausea / Vomiting Ondansetron HCl 4 mg 02/07/24 11:33 Ondansetron 4 Mg/2 Ml Vial IVP Q4HR PRN Nausea / Vomiting Objective Vital Signs/Intake & Output Vital Signs: Vital Signs x48h Resp Pulse Ox O2 Flow Rate 02/09/24 09:00 20 96 02/09/24 08:19 6 Intake & Output: Intake & Output 02/07/24 02/08/24 02/09/24 02/10/24 05:59 05:59 05:59 05:59 Intake Total 1401 / 1401 981 / 981 200 / 200 200 / 200 Output Total 750 / 750 1050 / 1050 Balance 1401 / 1401 981 / 981 -550 / -550 -850 / -850 Weight (kg) 46.5 kg Objective Comments/Other: elderly woman sitting in bed, NAD, sclera anicteric, LCTAB, RRR, S1S2, abd soft, NT, ND, BS+ calm, comfortable, Lab Results 02/06/24 14:54 02/06/24 14:54 Assessment/Plan Problem List (1) Aortic rupture: (2) Massive hemoptysis: (3) Hospice care patient: Impression: 88 yo F presenting with cough x 1-2 weeks, on antibiotics for CAP, episode of hemoptysis, found to have ruptured descending aortic aneurysm with contained leak in L upper lobe of lung. Now pursuing comfort care. - analgesics, antiemetics, anxiolytics prn - supp O2 prn for comfort - no blood draws, ivf, dvt ppx - appreciate SW- planning home hospice Updated son at bedside and he agrees with plan. DNR/DNI
--- NOTE | 2024-02-10 17:16 | PROVIDER PROGRESS NOTE ---
Subjective Prog Note Date Prog Note Date: 02/10/24 Prog Note Time: 17:14 Subjective Subjective: Pt did not sleep well overnight. No hemoptysis. Some bloody sputum when blowing nose. No pain. Current Medications Current Medications Current Medications: Current Medications Generic Name Dose Route Start Last Admin Trade Name Freq PRN Reason Stop Dose Admin Guaifenesin 10 ml 02/06/24 20:05 02/09/24 19:39 Guaifenesin/Dextromethorphan 10 Ml Udc PO 10 ml Q6HR PRN Administration Cough Hydromorphone HCl 1 mg 02/06/24 16:46 Hydromorphone 1 Mg/Ml Carpuject IVP PRN PRN Shortness of Air/Wheezing Lorazepam 1 mg 02/06/24 20:05 02/07/24 08:00 Lorazepam 1 Mg Tablet PO 1 mg Q6H PRN Administration Anxiety/Agitation Lorazepam 1 mg 02/07/24 11:49 02/10/24 05:27 Lorazepam 2 Mg/Ml Vial IVP 1 mg Q2H PRN Administration Anxiety Morphine Sulfate 2 mg 02/06/24 20:05 02/07/24 16:30 Morphine 2 Mg/Ml Carpuject IVP 2 mg Q2HR PRN Administration Severe Pain (Level 7-10)/ SOA Multi-Ingredient Mouthwash/Gargle 5 ml 02/06/24 20:05 02/08/24 16:50 Gi Cocktail 120 Ml Bottle PO 5 ml Q2H PRN Administration Mucositis Ondansetron HCl 4 mg 02/06/24 20:05 02/07/24 11:50 Ondansetron 4 Mg/2 Ml Vial IVP 4 mg Q8H PRN Administration Nausea / Vomiting Ondansetron HCl 4 mg 02/07/24 11:33 Ondansetron 4 Mg/2 Ml Vial IVP Q4HR PRN Nausea / Vomiting Trazodone HCl 50 mg 02/10/24 21:00 Trazodone 50 Mg Tablet PO QPM LENNY Objective Vital Signs/Intake & Output Intake & Output: Intake & Output 02/08/24 02/09/24 02/10/24 02/11/24 05:59 05:59 05:59 05:59 Intake Total 981 / 981 200 / 200 320 / 320 360 / 360 Output Total 750 / 750 2625 / 2625 Balance 981 / 981 -550 / -550 -2305 / -2305 360 / 360 Objective Comments/Other: elderly woman sitting in bed, NAD, sclera anicteric, LCTAB, RRR, S1S2, abd soft, NT, ND, BS+ calm, comfortable, Lab Results 02/06/24 14:54 02/06/24 14:54 Assessment/Plan Problem List (1) Aortic rupture: (2) Massive hemoptysis: (3) Hospice care patient: Impression: 88 yo F presenting with cough x 1-2 weeks, on antibiotics for CAP, episode of hemoptysis, found to have ruptured descending aortic aneurysm with contained leak in L upper lobe of lung. Now pursuing comfort care. - analgesics, antiemetics, anxiolytics prn - supp O2 prn for comfort - no blood draws, ivf, dvt ppx - appreciate SW- planning home hospice - add trazodone q hs for sleep- try before benzos given fewer side effects Updated son at bedside and he agrees with plan. DNR/DNI
[2024-02-10] MEDS: traZODone 50 MG TABLET PO SCH (21:02)
[2024-02-11 10:18] VITALS: O2SAT 93
--- NOTE | 2024-02-11 16:24 | PROVIDER PROGRESS NOTE ---
Subjective Prog Note Date Prog Note Date: 02/11/24 Prog Note Time: 16:21 Subjective Subjective: Pt feels fine today. No pain, no hemoptysis. SOB and cough improved. Did not sleep well, but reports that is her baseline. Current Medications Current Medications Current Medications: Current Medications Generic Name Dose Route Start Last Admin Trade Name Freq PRN Reason Stop Dose Admin Guaifenesin 10 ml 02/06/24 20:05 02/09/24 19:39 Guaifenesin/Dextromethorphan 10 Ml Udc PO 10 ml Q6HR PRN Administration Cough Hydromorphone HCl 1 mg 02/06/24 16:46 Hydromorphone 1 Mg/Ml Carpuject IVP PRN PRN Shortness of Air/Wheezing Lorazepam 1 mg 02/06/24 20:05 02/07/24 08:00 Lorazepam 1 Mg Tablet PO 1 mg Q6H PRN Administration Anxiety/Agitation Lorazepam 1 mg 02/07/24 11:49 02/10/24 05:27 Lorazepam 2 Mg/Ml Vial IVP 1 mg Q2H PRN Administration Anxiety Morphine Sulfate 2 mg 02/06/24 20:05 02/07/24 16:30 Morphine 2 Mg/Ml Carpuject IVP 2 mg Q2HR PRN Administration Severe Pain (Level 7-10)/ SOA Multi-Ingredient Mouthwash/Gargle 5 ml 02/06/24 20:05 02/08/24 16:50 Gi Cocktail 120 Ml Bottle PO 5 ml Q2H PRN Administration Mucositis Ondansetron HCl 4 mg 02/06/24 20:05 02/07/24 11:50 Ondansetron 4 Mg/2 Ml Vial IVP 4 mg Q8H PRN Administration Nausea / Vomiting Ondansetron HCl 4 mg 02/07/24 11:33 Ondansetron 4 Mg/2 Ml Vial IVP Q4HR PRN Nausea / Vomiting Trazodone HCl 50 mg 02/10/24 21:00 02/10/24 21:02 Trazodone 50 Mg Tablet PO 50 mg QPM LENNY Administration Objective Vital Signs/Intake & Output Vital Signs: Vital Signs x48h Temp Pulse Resp BP Pulse Ox 02/11/24 09:00 36.7 C 66 16 106/56 L 93 Intake & Output: Intake & Output 02/09/24 02/10/24 02/11/24 02/12/24 05:59 05:59 05:59 05:59 Intake Total 200 / 200 320 / 320 530 / 530 230 / 230 Output Total 750 / 750 2625 / 2625 950 / 950 1400 / 1400 Balance -550 / -550 -2305 / -2305 -420 / -420 -1170 / -1170 Objective Comments/Other: elderly woman sitting in bed, NAD, sclera anicteric, basilar crackles and diminished at lung bases, nonlabored RRR, S1S2, abd soft, NT, ND, BS+ alert, communicative, pleasant Lab Results 02/06/24 14:54 02/06/24 14:54 Assessment/Plan Problem List (1) Aortic rupture: (2) Massive hemoptysis: (3) Hospice care patient: Impression: 88 yo F presenting with cough x 1-2 weeks, on antibiotics for CAP, episode of hemoptysis, found to have ruptured descending aortic aneurysm with contained leak in L upper lobe of lung. Now pursuing comfort care. - analgesics, antiemetics, anxiolytics prn - supp O2 prn for comfort - no blood draws, ivf, dvt ppx - appreciate SW- planning home hospice - trazodone q hs for sleep- try before benzos given fewer side effects - sent scripts for home hospice meds to pharmacy- liquid morphine, oxycodone, zofran, tylenol rectal, haldol, ativan, scopalamine, bisacodyl supp, senna Updated daughter at bedside and he agrees with plan. D/c tomorrow am DNR/DNI
--- NOTE | 2024-02-12 08:54 | Discharge Summary ---
Discharge Summary Admit Date: 02/06/24 Discharge Date: 02/12/24 Discharging Provider: Jose Tom Primary Care Provider: Yohana Orlando Code Status: Do Not Attempt Resuscitation DIAGNOSES Admission Diagnoses: Aortic rupture Massive hemoptysis Hospice care patient Discharge Diagnoses with Status of Each Condition: Aortic rupture Massive hemoptysis, resolved Hospice care patient HPI History of Present Illness: 88-year-old female with a history of prediabetes who presents due to repeated hemoptysis at her family doctor's office. Per patient, approximately a week ago, she noticed that she was weak, had cough, productive sputum production. She went to her physician, who treated her for a possible pneumonia in the outpatient setting. While in a follow-up appointment for persistent cough earlier today, she had an episode of hemoptysis. There were blood clots in it, as well as a lot of thick blood. As such, her physician told her to come to the emergency room. While here, she had repeated episode of large-volume hemoptysis. She also complained of some shortness of breath. 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 Vital signs remained stable. Laboratory results were also reviewed, hemoglobin still stable at 10.8. Her other labs were largely unremarkable. Her care was discussed with Dr. Collins, the ED physician. He had already spoken with vascular surgery at [facility], Dr. Aguilar, and was told that hemoptysis indicates there could be infection. Any operation would be palliative regardless. Surgery would also require intubation and temporary reversal of her DNR/DNI status. She would need to be flown emergently to [facility]. The ED physician, Dr. Collins, as well as admitting hospitalist, had seperate and extensive discussions with herself, as well as her son, Ary, who was present at bedside. She is alert and oriented x 3, a very healthy 88-year-old who definitely has capacity to make the decision for herself. She does not want to be transferred, she does not want any procedures or surgery. Furthermore, she does not want to be intubated, or resuscitated. She would like to pursue Hospice care. She is adamant about not pursuing any aggressive medical treatment. Hospice was explained to her; she was told that hospice care is going to be focused on her comfort, a.k.a., we would make sure she was not in any pain, she is not feeling anxious, and try to minimize the suffering that the likely ongoing hemoptysis will bring her. She stated that her was in hospice for 6 months for passing away earlier this summer, so she was very familiar with the process. She would like to be hospice at home if that was possible. HOSPITAL COURSE Hospital Course: The patients was admitted with plan for comfort focused care and admission to hospice. She was treated with ativan prn for anxiety, antitussives, sleep aides. The pt has minimal pain while here. A paige was placed for comfort and end of life care and pt elected to keep the catheter on discharge. Hemoptysis resolved and she had no hemoptysis for a few days prior to discharge. Prescriptions for home hospice meds were sent to pharmacy- liquid morphine, oxycodone, zofran, tylenol rectal, haldol, ativan, scopalamine, bisacodyl supp, senna. Multiple family members were present at bedside during her stay, including several of her children. They were updated on her condition regularly and are in agreement with the plan of care. The pt will be discharged on home hospice. ALLERGIES Allergies Allergy/AdvReac Type Severity Reaction Status Date / Time tree and shrub pollen Allergy Mild Respiratory Verified 02/06/24 13:45 MEDICATIONS Ambulatory Orders Medication Instructions Recorded Confirmed acetaminophen 500 mg tablet 500 mg PO Q6H PRN 02/01/24 02/01/24 (Tylenol Extra Strength) mecobalamin (vitamin B12) 1,000 1,000 mcg PO QDAY 02/01/24 02/01/24 mcg chewable tablet [id number]-tfc-xcicx acid 0.4 1 tab PO QDAY 02/01/24 02/01/24 mg-lycopene 300 mcg-lutein 250 mcg tablet (Complete Multivitamin Adult 50 Plus) acetaminophen 650 mg rectal 650 mg CA Q4H PRN fever #50 ea 02/11/24 suppository bisacodyl 10 mg rectal suppository 10 mg CA DAILY PRN constipation 02/11/24 #12 ea haloperidol lactate 2 mg/mL oral 1 mg (0.5 mL) PO Q6H PRN 02/11/24 concentrate agitation, nausea, vomiting 12 months #15 mL lorazepam 2 mg/mL oral concentrate 1 mg (0.5 mL) PO Q2H PRN anxiety 02/11/24 (Lorazepam Intensol) and agitation #30 mL morphine 20 mg/5 mL (4 mg/mL) oral 2 mg (0.5 mL) PO Q2H PRN pain and 02/11/24 solution dyspnea #100 mL ondansetron 4 mg disintegrating 4 mg PO Q6HR #30 tabs 02/11/24 tablet oxycodone 5 mg capsule 2.5 mg (1/2 x 5 mg) PO Q4HR PRN 02/11/24 pain #20 caps scopolamine base 1 mg over 3 days 1 patch transdermal Q72H PRN upper 02/11/24 transdermal patch airway secretions and oral secretions #10 ea sennosides 8.6 mg capsule (senna) 8.6 mg PO DAILY PRN constipation 02/11/24 #30 caps dextromethorphan-guaifenesin 5 10 ml PO Q8H PRN cough #500 mL 02/12/24 mg-100 mg/5 mL oral liquid oxycodone-acetaminophen 2.5 mg-325 1 tab PO Q4HR PRN pain #20 tabs 02/12/24 mg tablet trazodone 50 mg tablet 50 mg PO QPM PRN insomnia #30 tabs 02/12/24 PHYSICAL EXAM AT DISCHARGE Physical Exam Other/Comments: elderly woman sitting in chair, NAD, sclera anicteric, basilar crackles and diminished at lung bases, nonlabored RRR, S1S2, abd soft, NT, ND, BS+ alert, communicative, pleasant LABS 02/06/24 14:54 02/06/24 14:54 DIAGNOSTIC IMAGING Diagnostic Imaging Results Comments: CTA chest 02/06/24: FINDINGS: Image quality: Excellent. Large vessels: The wall of the descending aorta is discontinuous, with contrast extravasation extending into the left upper lobe (series 4, image 28). Lungs and pleura: Fluid is extending into the parenchyma of the left upper lung zone, and there is filling of the airways. Small left pleural effusion. Mediastinum: Heart size is enlarged. No pericardial effusion. No large vessel abnormality. No mediastinal adenopathy by size criteria. Chest wall and lower neck: Thyroid is unremarkable. No axillary or supraclavicular adenopathy by size. Bones: No aggressive osseous abnormality. Upper Abdomen: Unremarkable. IMPRESSION: Ruptured descending aorta, with a contained leak. TIME SPENT Time Spent in Discharge (Minutes): 25 Discharge Plan Discharge Patient Disposition: 50 Hospice/Home DC/Xfer Condition: Critical Medically Cleared Date:: 02/12/24 Prescriptions: New ondansetron 4 mg tablet,disintegrating 4 mg PO Q6HR Qty: 30 0RF acetaminophen 650 mg suppository 650 mg CA Q4H PRN (Reason: fever ) Qty: 50 0RF haloperidol lactate 2 mg/mL concentrate 1 mg PO Q6H PRN (Reason: agitation, nausea, vomiting ) 360 Days Qty: 15 0RF scopolamine base 1 mg over 3 days patch 3 day 1 patch transdermal Q72H PRN (Reason: upper airway secretions and oral secretions ) Qty: 10 0RF morphine 20 mg/5 mL (4 mg/mL) solution 2 mg PO Q2H PRN (Reason: pain and dyspnea ) Qty: 100 0RF oxycodone 5 mg capsule 2.5 mg PO Q4HR PRN (Reason: pain) Qty: 20 0RF lorazepam [Lorazepam Intensol] 2 mg/mL concentrate 1 mg PO Q2H PRN (Reason: anxiety and agitation ) Qty: 30 0RF bisacodyl 10 mg suppository 10 mg CA DAILY PRN (Reason: constipation) Qty: 12 0RF senna 8.6 mg capsule 8.6 mg PO DAILY PRN (Reason: constipation) Qty: 30 0RF trazodone 50 mg Tablet 50 mg PO QPM PRN (Reason: insomnia) Qty: 30 0RF oxycodone-acetaminophen 2.5-325 mg tablet 1 tab PO Q4HR PRN (Reason: pain) Qty: 20 0RF dextromethorphan-guaifenesin 5-100 mg/5 mL liquid 10 ml PO Q8H PRN (Reason: cough) Qty: 500 0RF Continued acetaminophen [Tylenol Extra Strength] 500 mg tablet 500 mg PO Q6H PRN mecobalamin (vitamin B12) 1,000 mcg tablet,chewable 1,000 mcg PO QDAY Complete MV Adult 50 Plus 0.4 mg-300 mcg- 250 mcg tablet 1 tab PO QDAY Activity Restrictions: Activity as Tolerated Diet: Regular Plan of Treatment: Medications to control symptoms were sent to your pharmacy. You may not need to take these medications for some time, but should have them available for when they are needed. Your hospice team can give you more information about how and when to take these medications. You will be sent home with a paige (urinary) catheter as we discussed. If you would like to have the catheter removed at some point, please discuss that with your hospice team. Print Language: Tunisian Patient Instructions: Hospice Start Stand Alone Forms: PCP List Follow-up Care: Yohana Orlando PA-C [Primary Care Provider] - (Follow up as needed.)
== END 2024-02-12 09:27 | disposition hospice, home (50) | DRG 301 ==
LOC: ED 13:07 → ICU 18:13
PROVIDERS: ADMIT Internal Medicine; ATTEND Internal Medicine
DX: Z51.5 Encounter for palliative care; Z66 Do not resuscitate; Z63.4 Disappearance and death of family member; Z20.828 Contact with and (suspected) exposure to other viral communicable diseases; Z20.822 Contact with and (suspected) exposure to COVID-19; D72.829 Elevated white blood cell count, unspecified; R73.03 Prediabetes; Z87.891 Personal history of nicotine dependence; D64.9 Anemia, unspecified; I49.1 Atrial premature depolarization; I71.8 Aortic aneurysm of unspecified site, ruptured